=== PATIENT | female | born 1950 | race African-American/Black ===

== ENCOUNTER 2016-08-14 09:25 | Day surgery (SDC) | payer OTHER ==
[2016-08-14] MEDS ORDERED: LR 1,000 ML ONE (10:18)
[2016-08-14] MEDS ORDERED: MYLICON DROPS (DOSE) MISC ONE (13:11)
[2016-08-14] MEDS ORDERED: DIPRIVAN 1% ONE (13:32)
[2016-08-14] MEDS ORDERED: FENTANYL ONE (13:32)
[2016-08-14] MEDS ORDERED: XYLOCAINE-MPF 2% ONE (13:35)
[2016-08-14 14:24] VITALS: BP 168/80
--- NOTE | 2016-08-20 04:16 | OPERATIVE NOTE ---
PROCEDURE DATE: 08/14/2016 REFERRING PHYSICIAN: Mane Lawton MD. INDICATION FOR PROCEDURE: PEG removal (unable to remove at bedside). PROCEDURE PERFORMED: Esophagogastroduodenoscopy with PEG removal. CONSENT: Informed consent was obtained from the patient prior to the procedure. The risks, benefits, and alternatives were discussed. MEDICATIONS: The patient received monitored anesthesia care. PERFORMING PHYSICIAN: Janae Sinclair MD. ASSISTANTS: 1. [facility]. Evangelista 2. Isaiah Martin RN. 3. Cintia Rojo CRNA. 4. Logan Spicer MD (anesthesia). COMPLICATIONS: There were no complications. ESTIMATED BLOOD LOSS: 1-2 mL. SPECIMENS REMOVED: None. FINDINGS: After sedation was achieved, the upper endoscope was inserted to the 2nd portion of the duodenum. The hypopharynx appeared endoscopically normal. The tubular esophagus appeared normal. There were prominent esophageal veins but no varices or stigmata of bleeding. There was no evidence of Ureña's esophagus. The GE junction was measured at 38 cm from the incisors. There was a hiatal hernia from 38-44 cm. There was nonerosive gastritis in the gastric lumen with a few scattered nonbleeding AVMs. The fundus appeared grossly normal on retroflexed view. The pylorus appeared normal on forward view. The duodenum appeared normal. There was a PEG bumper in the mid gastric body that was seen on insertion. There were inflammatory changes below the surface of the bumper. The mucosa bled easily on contact. Hemostasis was achieved with water flushes. After this exam was complete, the scope was retracted into the gastric lumen. The previously identified PEG internal bumper was visualized. The surrounding mucosa bled on contact. However, hemostasis was achieved with water flushes. Using scissors, the external portion of the PEG was cut and the internal bumper was removed per os without difficulty. Second-look endoscopy confirmed no evidence of active bleeding. There were inflammatory changes immediately adjacent to her PEG tract. After the exam was complete, the lumen was decompressed and the scope was removed without incident. IMPRESSION: 1. Prominent esophageal veins. 2. Hiatal hernia. 3. Nonerosive gastritis. 4. Scattered nonbleeding arteriovenous malformations. 5. Percutaneous endoscopic gastrostomy bumper in the mid gastric body, status post successful removal. 6. Normal duodenum. RECOMMENDATION: 1. We will make the patient NPO for 4 hours to allow the tract to close. 2. She should continue Protonix. 3. Continue Carafate. 4. Add Bactroban for 5 days applied to the skin twice a day for 5 days in light of the inflammation around the PEG tract. 5. After 4 hours, she may resume her diet and resume her medications. 6. Please keep the sterile dressing intact for the next 8 hours after which it can be removed and routine skin care performed. 7. We will have the patient return to clinic in 3 months to assess interval progress.
== END 2016-08-14 14:37 ==
LOC: ENDO 09:25
PROVIDERS: ATTEND Internal Medicine Gastroenterology
DX: Z43.1 Encounter for attention to gastrostomy (principal)
CPT/HCPCS: 82948; J3010; J7120

== ENCOUNTER 2017-02-11 11:12 | Inpatient (IN) ==
--- NOTE | 2017-02-11 11:29 | Diag Imaging Result Doc PS360 ---
EXAM: CT HEAD W/O CONTRAST HISTORY: stroke-like symptoms TECHNIQUE: CT of the head without contrast COMMENT: The current study is compared with that of 06/09/2016. There is extensive encephalomalacia in the right hemisphere including portions of the frontal parietal and temporal lobes. There is a lacunar lesion in the caudate nucleus on the left. There is no evidence of bleed or abnormal extra-axial fluid collection. The previous study was less optimal due to patient motion, however there has been no appreciable change in the brain with possible exception of the lacunar lesion in the left caudate which was not as well demonstrated on the previous study. There is also a more fluid in the left mastoid air cells and on the previous study. IMPRESSION: Chronic ischemic changes. Left mastoid effusion. Electronically signed by Jignesh Vargas 02/11/2017 11:27 AM
[2017-02-11 12:07] LABS: MANUAL DIFF NEEDED? NO
[2017-02-11 12:12] LABS: BASO% 0.2 % (0.0-0.8); EOS% 3.5 % (0.0-10.0); HEMATOCRIT 34.2 % (37.0-47.0); HEMOGLOBIN 11.1 g/dL (12.0-16.0); LYMPH# 2.29 X1000 (1.2-3.4); LYMPH% 26.9 % (20.5-51.1); MCH 30.2 PG (27-31); MCHC 32.5 g/dL (33-37); MCV 92.9 FL (81-99); MONO# 0.63 X1000 (0.11-0.59); MONO% 7.4 % (1.7-9.3); MPV 9.2 FL (7.4-10.4); PLT 258 X1000 (130-400); RBC 3.68 XMIL (4.2-5.4)
--- NOTE | 2017-02-11 12:30 | Diag Imaging Result Doc PS360 ---
EXAM: CHEST-PORTABLE HISTORY: stroke like symptoms TECHNIQUE: AP portable upright chest at 1208 COMMENT: There is poor inspiration. Considering the degree of inspiration there is been no significant change since 09/13/2016. IMPRESSION: Poor inspiration. Electronically signed by Jignesh Vargas 02/11/2017 12:28 PM
[2017-02-11 12:32] LABS: AGAP 7; ALBUMIN 3.3 g/dL (3.5-5.0); ALKALINE PHOSPHATASE 79 U/L (32-104); BUN 17 mg/dL (8-22); CALCIUM 8.8 mg/dL (8.8-10.2); CHLORIDE 94 mmol/L (98-107); COSMO 270; GOT 21 U/L (10-30); GPT 22 U/L (10-36); POTASSIUM 5.7 mmol/L (3.5-5.1); SODIUM 130 mmol/L (136-145); TCO2 29 mmol/L (25-35); TOTAL BILIRUBIN 0.22 mg/dL (0.20-1.00); TOTAL PROTEIN 7.7 g/dL (6.3-8.3)
[2017-02-11 12:34] LABS: INR 1.06; PROTIME 11.2 Seconds (9.2-11.7); PTT 27.1 Seconds (22.0-36.0)
--- NOTE | 2017-02-11 12:38 | EKG Report ---
Test Performed on : 02/11/2017 11:32:05 AM Test Reason : Stroke like symptoms Blood Pressure : / mmHG Vent. Rate : 093 BPM Atrial Rate : 093 BPM P-R Int : 156 ms QRS Dur : 070 ms QT Int : 346 ms P-R-T Axes : 057 019 037 degrees QTc Int : 430 ms Normal sinus rhythm. Normal ECG When compared with ECG of 13-SEP-2016 03:58, No significant change was found Unconfirmed Result
[2017-02-11 12:47] LABS: BILIRUBIN URINE NEGATIVE (NEGATIVE); BLOOD URINE SMALL (NEGATIVE); COLOR ORANGE; GLUCOSE URINE NEGATIVE (NEGATIVE); LEUKOCYTES URINE LARGE (NEGATIVE); NITRITE URINE NEGATIVE (NEGATIVE); PROTEIN URINE TRACE mg/dL (NEGATIVE); SP GRAVITY URINE 1.011; TURBIDITY URINE TURBID (CLEAR); URINE SOURCE CATH; UROBILINOGEN URINE NORMAL (NORMAL)
[2017-02-11 12:56] LABS: UR AMPHETAMINES MT NONE DETECTED (NONE DETECT); UR BARBITUATES MT NONE DETECTED (NONE DETECT); UR BENZODIAZ MT NONE DETECTED (NONE DETECT); UR CANNABIS MEDTOX NONE DETECTED (NONE DETECT); UR COCAINE MT NONE DETECTED (NONE DETECT); UR METHADONE MEDTOX NONE DETECTED (NONE DETECT); UR OPIATES MT PRESUMPTIVE POS (NONE DETECT); UR OXYCODONE MEDTOX NONE DETECTED (NONE DETECT); UR PCP MEDTOX NONE DETECTED (NONE DETECT)
[2017-02-11 13:05] LABS: UR EPITHELIAL CELLS <10 /HPF (<10); URINE BACTERIA 4+ /HPF; URINE CASTS NONE SEEN; URINE CULTURE NEEDED? YES; URINE MICRO REVIEW NEEDED? YES; URINE WBC TNTC /HPF (<10)
[2017-02-11] MEDS ORDERED: LEVAQUIN 500 MG/D5W 500 MG/100 ML IVPB IV ONE (14:59)
--- NOTE | 2017-02-11 15:03 | PROVIDER DOCUMENTATION ---
This chart was entered by Gretchen Jaquez Scribe, acting as scribe for Geronimo Henry MD. HPI-Neurological Disorder - General Chief Complaint: Stroke-Like Symptoms Stated Complaint: ? cva with hx of cva Time Seen by Provider: 02/11/17 11:52 Source: patient, group home records Allergies/Adverse Reactions: Patient Allergies Allergy/AdvReac Type Severity Reaction Status Date / Time Sulfa (Sulfonamide Allergy Intermediate RASH Verified 08/13/16 13:00 Antibiotics) [Sulfa(Sulfonamide Antibiotics)] Home Medications: Home Medication List Medication Instructions Recorded Confirmed Last Taken Type Atorvastatin Calcium 40 mg PEG DAILY 10/05/15 09/13/16 08/13/16 09:00 History Ipratropium/Albuterol Sulfate 3 ml IH Q4H PRN PRN 11/10/15 09/13/16 1 Month Ago History [Iprat-Albut 0.5-3(2.5) mg/3 ml] Magnesium Oxide [Mag-Ox] 400 mg PEG BID #0 tablet 12/07/15 09/13/16 08/13/16 21: 00 Rx Acetaminophen [Tylenol] 325 mg PEG PRN PRN 03/01/16 09/13/16 08/13/16 21:00 History Aspirin 81 mg PEG DAILY 03/01/16 09/13/16 08/10/16 History Bisacodyl [Dulcolax] 10 mg VA DAILY PRN PRN 03/01/16 09/13/16 1 Week Ago History Ergocalciferol (Vitamin D2) 50,000 unit PEG DIRECTED 03/01/16 09/13/16 History [Vitamin D2] Iron Carbonyl/Ascorbic Acid 1 each PEG DAILY 03/01/16 09/13/16 08/13/16 09:00 History [Icar-C] Multivitamin [Once Daily] 1 each PEG DAILY 03/01/16 09/13/16 08/13/16 09:00 History Polyethylene Glycol 3350 [Miralax] 17 gm PO DAILY 03/01/16 09/13/16 08/13/16 21: 00 History Zinc Gluconate [Zinc] 220 mg PEG DAILY 03/01/16 09/13/16 08/13/16 09:00 History Citalopram [Celexa] 20 mg PO QHS #30 tablet 12/30/16 03/30/17 02/27/17 21:00 Rx Donepezil [Aricept] 10 mg PEG DAILY #30 tablet 06/15/16 09/13/16 08/13/16 09:00 Rx LISINOpril [Prinivil] 10 mg PO DAILY #0 tablet 06/15/16 09/13/16 08/14/16 06:30 Rx Pantoprazole [Protonix] 40 mg PO BID #90 tablet 06/15/16 09/13/16 08/13/16 21: 00 Rx Sucralfate [Carafate Liquid] 1 gm PEG Q6H #30 udc 06/15/16 09/13/16 08/13/16 18: 00 Rx Trazodone [Desyrel] 50 mg PEG QHS #30 tablet 06/15/16 09/13/16 08/13/16 21:00 Rx Gabapentin [Neurontin] 300 mg PO BID 08/13/16 09/13/16 08/13/16 21:00 History Hydrocodone/Acetaminophen [[place] 1 each PO PRN PRN 08/13/16 09/13/16 08/13/16 23 :45 History 10-325 Tablet] Metformin [Glucophage] 500 mg PO BID CC 08/13/16 09/13/16 08/13/16 21:00 History Mupirocin Ointment [Bactroban 1 applicatn TOP BID #1 tube 08/14/16 09/13/16 Unknown Rx Ointment] - History of Present Illness-Neuro Nature of Presenting Problem: 67 year-old female presents to the ER via EMS transport from the group home. She began to have left sided arm weakness on 02/10/17. She is having left sided facial drooping and right sided facial numbness today. She has history of a CVA that caused right sided numbness. She also has history of Alzheimer's and is confused at times. No other symptoms are presented at this time. Severity: reports: mild Onset/Duration: reports: 24 hours ago Timing: reports: still present Context: reports: other (Left sided weakness.) Character of Altered Mental Status: reports: N/A Any recent trauma/injury?: reports: none Character of Deficits: reports: new weakness (Left sided) New weakness or altered sensation location:: reports: left facial Cognitive Baseline: alert but confused Associated Symptoms: reports: paresthesia, weakness Similar Symptoms Previously?: Yes Recently seen or treated by another doctor?: Yes Review of Systems - Adult - REVIEW OF SYSTEMS - ADULT Constitutional: reports: no symptoms reported, see HPI Eyes: reports: no symptoms reported, see HPI Ears, Nose, Mouth & Throat: reports: no symptoms reported, see HPI Cardiovascular: reports: no symptoms reported, see HPI Respiratory: reports: no symptoms reported, see HPI Gastrointestinal: reports: no symptoms reported, see HPI Genitourinary: reports: no symptoms reported, see HPI Musculoskeletal: reports: no symptoms reported, see HPI Integumentary: reports: no symptoms reported, see HPI Neurological: reports: see HPI, numbness (Right side of face.), other (Left facial droop and tongue deviation.) Psychiatric: reports: no symptoms reported, see HPI Endocrine: reports: no symptoms reported, see HPI, excessive sweating Hematologic/Lymphatic: reports: no symptoms reported, see HPI Allergic/Immunologic: reports: no symptoms reported, see HPI All Other Systems: Reviewed and Negative Past History - Adult - PAST MEDICAL HISTORY-ADULT Review of Records: reports: Old Records Reviewed, Nursing Assessment Review, Medications Reviewed, Social history reviewed & non-contributory. Major Childhood Illnesses: reports: denies history Cardiovascular: reports: HTN, hyperlipidemia Respiratory: reports: denies history Gastrointestinal: reports: denies history Obstetrical/Gynecological: reports: denies history Genitourinary: reports: kidney disease Musculoskeletal: reports: denies history Neurological: reports: CVA (2008 left side, 03/2015 right side), stroke deficits (right sided) Endocrine/Immune: reports: Diabetes Other Conditions: reports: denies history - PRIOR SURGERIES/PROCEDURES Surgical/Procedure History: reports: hysterectomy - PRIOR HOSPITALIZATIONS Prior Hospitalizations: reports: none - IMMUNIZATION STATUS Childhood Immunizations: See Nurse Assessment Flu Vaccine: See Nurse Assessment - FAMILY HISTORY Family History: reviewed, not pertinent - SOCIAL HISTORY Smoking: non-smoker Substance Use: none/never Alcohol Use Frequency: never Physical Exam- Neurological - Physical Exam-Neuro Initial Vital Signs Reviewed: Yes General Appearance: appears well, alert, no apparent distress HENMT: normocephalic/atraumatic, moist mucous membranes, other (Left tongue deviation. 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 Exam: normal hearing, normal speech, PERRL, facial droop (Left sided), tongue deviation to L Coordination/Gait: normal finger to nose Motor/Sensory: no motor deficit, sensory deficit (Right side of face.) Neurologic: aircraft magneto mechanic II-XII nml as tested, facial droop (Left side), sensory deficit (Right side of face) Integumentary: normal color, normal turgor, warm/dry Psych/Mental Status: normal mood/affect, normal thought content, normal thought process - Glascow Coma Scale Best Eye Response: (4) open spontaneously Best Verbal Response: (5) oriented (Person, time) Best Motor Response: (6) obeys commands Total Glascow Score: 15 Progress - PLAN OF CARE/RESULTS Progress/Plan/Lab Results: Vital Signs - 8 hr 02/11/17 11:34 02/11/17 12:17 02/11/17 12:30 Temperature 98.7 F Pulse Rate 91 H 86 87 Respiratory Rate 18 13 15 Blood Pressure 108/71 118/92 103/70 O2 Sat by Pulse Oximetry 96 95 95 02/11/17 13:00 02/11/17 13:47 02/11/17 14:21 Temperature Pulse Rate 83 83 86 Respiratory Rate 13 15 13 Blood Pressure 112/85 94/69 114/71 O2 Sat by Pulse Oximetry 95 96 95 Laboratory Results - last 24 hr 02/11/17 02/11/17 02/11/17 12:00 12:00 12:00 WBC 8.51 RBC 3.68 L Hgb 11.1 L Hct 34.2 L MCV 92.9 MCH 30.2 MCHC 32.5 L RDW Std Deviation 12.7 Plt Count 258 MPV 9.2 Immature Gran % (Auto) 0.0 Neut % (Auto) 62.0 Lymph % (Auto) 26.9 [place] % (Auto) 7.4 Eos % (Auto) 3.5 Baso % (Auto) 0.2 Immature Gran # (Auto) 0.00 Neut # (Auto) 5.27 Lymph # (Auto) 2.29 [place] # (Auto) 0.63 H Eos # (Auto) 0.30 Baso # (Auto) 0.02 PT 11.2 INR 1.06 PTT (Actin FS) 27.1 Sodium 130 L Potassium 5.7 H Chloride 94 L Carbon Dioxide 29 Anion Gap 7 BUN 17 Creatinine 0.7 Estimated GFR/1.73 m2 > 60 BUN/Creatinine Ratio 24 Glucose 232 H Calculated Osmolality 270 Calcium 8.8 Total Bilirubin 0.22 AST 21 ALT 22 Alkaline Phosphatase 79 Troponin T Total Protein 7.7 Albumin 3.3 L Globulin 4.4 Albumin/Globulin Ratio 0.8 Urine Source Urine Color Urine Turbidity Urine pH Ur Specific [place] Urine Protein Ur Glucose (Stick) Ur Ketones (Stick) Urine Blood Urine Nitrite Urine Bilirubin Urobilinogen Dipstick Urine Leukocytes Urine WBC (Auto) Urine RBC (Auto) U Epithel Cells (Auto) Urine Bacteria (Auto) Urine Crystals Small Round Cells Urine Casts Urine Yeast-like Cells Urine Opiates Screen Ur Oxycodone Screen Urine Methadone Screen Ur Barbiturates Screen Ur Phencyclidine Scrn Ur Amphetamines Screen U Benzodiazepines Scrn Urine Cocaine Screen U Cannabinoids Screen 02/11/17 02/11/17 02/11/17 12:00 12:31 12:34 WBC RBC Hgb Hct MCV MCH MCHC RDW Std Deviation Plt Count MPV Immature Gran % (Auto) Neut % (Auto) Lymph % (Auto) [place] % (Auto) Eos % (Auto) Baso % (Auto) Immature Gran # (Auto) Neut # (Auto) Lymph # (Auto) [place] # (Auto) Eos # (Auto) Baso # (Auto) PT INR PTT (Actin FS) Sodium Potassium Chloride Carbon Dioxide Anion Gap BUN Creatinine Estimated GFR/1.73 m2 BUN/Creatinine Ratio Glucose Calculated Osmolality Calcium Total Bilirubin AST ALT Alkaline Phosphatase Troponin T < 0.010 Total Protein Albumin Globulin Albumin/Globulin Ratio Urine Source CATH Urine Color ORANGE Urine Turbidity TURBID Urine pH 8.0 Ur Specific [place] 1.011 Urine Protein TRACE A Ur Glucose (Stick) NEGATIVE Ur Ketones (Stick) NEGATIVE Urine Blood SMALL A Urine Nitrite NEGATIVE Urine Bilirubin NEGATIVE Urobilinogen Dipstick NORMAL Urine Leukocytes LARGE A Urine WBC (Auto) TNTC A Urine RBC (Auto) 10-20 A U Epithel Cells (Auto) <10 Urine Bacteria (Auto) 4+ Urine Crystals Not Reportable Small Round Cells Not Reportable Urine Casts NONE SEEN Urine Yeast-like Cells NONE SEEN Urine Opiates Screen PRESUMPTIVE POS A Ur Oxycodone Screen NONE DETECTED Urine Methadone Screen NONE DETECTED Ur Barbiturates Screen NONE DETECTED Ur Phencyclidine Scrn NONE DETECTED Ur Amphetamines Screen NONE DETECTED U Benzodiazepines Scrn NONE DETECTED Urine Cocaine Screen NONE DETECTED U Cannabinoids Screen NONE DETECTED Orders Category Date Time Status Cardiac Monitoring DIRECTED Care 02/11/17 11:53 Active Finger Stick Blood Sugar (ED) DIRECTED Care 02/11/17 11:53 Active Misc. NRSG Communication Order DIRECTED Care 02/11/17 11:53 Active Saline Loc NOW Care 02/11/17 11:53 Active CHEST-PORTABLE [RAD] Stat Exams 02/11/17 11:[address] HEAD W/O CONTRAST [CT] Stat Exams 02/11/17 11:15 Completed CBC WITH ELECTRONIC DIFF [HEME] Stat Lab 02/11/17 12:00 Completed COMPREHENSIVE METABOLIC PANEL [CHEM] Stat Lab 02/11/17 12:00 Completed PROTIME WITH INR [COAG] Stat Lab 02/11/17 12:00 Completed PTT [COAG] Stat Lab 02/11/17 12:00 Completed TROPONIN T Stat Lab 02/11/17 12:00 Completed URINALYSIS W/POSS RFLX CULT-1 [URINALYSIS] Stat Lab 02/11/17 12:34 Completed URINE CULTURE [RM] Routine Lab 02/11/17 13:09 Received URINE DRUG SCREEN MEDTOX Routine Lab 02/11/17 12:31 Completed URINE MANUAL MICROSCOPIC [URINALYSIS] Stat Lab 02/11/17 12:34 Completed Levofloxacin 500 mg/D5w [Levaquin 500 mg/D5w] Med 02/11/17 14:59 Active 500 mg in 100 ml IV NOW EKG [EKG] Stat Ther 02/11/17 11:53 Draft Transfer/Admit Order [TRANSFER] Routine Transfer 02/11/17 15:00 Ordered Result Diagrams: 02/11/17 12:00 02/11/17 12:00 - EKG 1 Time of EKG reading by physician:: 11:32 EKG Read and Signed by:: Geronimo Henry EKG Interpretation (*Must complete 3 of following elements*): Normal Rate: 93 [place]: normal (PRT axis 57 19 37.) QRS: normal (QRS duration 70 ms.) VA Interval: normal (VA interval 156 ms.) - CT/MRI 1 CT Study: Head Comparison with other Films: no changes CT Results: Chronic ischemic changes. Left mastiod effusion. - CONSULTS/PCP/HOSPITALIST Notification #1 *Consult/PCP/Hospitalist*: Keena GHOSH with hospitalist Time Discussed: 14:58 Reason/Comments: UTI with delirum Consult Disposition: Admit Departure - Departure Date of Disposition Decision: 02/11/17 Time of Disposition Decision: 14:59 DIAGNOSIS: UTI (urinary tract infection), Delirium due to another medical condition Disposition: ADMITTED INPATIENT 09 Certified Medical Emergency: Emergent Condition: Stable Referrals and Follow-Ups: Marty Campos MD [Primary Care Provider] - - Critical Care Note This patient required my direct & personal management of CC.: No Attestation - Physician/ CHICHI Attestation The physician spent face to face time with patient:: Yes Advanced Practice Provider documentation review:: Supervising physician onsite and consulted in the evaluation and care of this patient. The physician did have a face to face encounter with the patient. - NIH Stroke Scale NIH Type: Initial Evaluation Level of Consciousness: 0-Alert LOC Questions (ask month and age): 0-Answers Both Correctly LOC Commands (ask to open & close eyes;make a fist, let go): 0-Obeys Both Correctly Best Gaze (horizontal eye movement): 0-Normal Visual (use finger movement, counting or visual threat): 0-No Visual Loss Facial Palsy (show teeth or raise eyebrows & close eyes tght: 1-Minor Paralysis (Left sided facial droop.) Motor Function-left arm: 0-Normal Motor Function-right arm: 0-Normal Motor Function-left le-Normal Motor Function-right le-Normal Limb Ataxia(dvqtbt-[id number]-gmukke, or heel to evangelista): 0-No Ataxia Sensory(pin prick to face,arms,trunk,legs-compare side/side): 1-Mild to Moderate Decrease in Sensation (Right side of face.) Best Language(name item/read sentence.Ex-Down to Earth): 0-No Aphasia Dysarthria(Pt read words or say words Ex.Mama,Tip-Top,Thanks: 0-Normal Articulation Extinction and Inattention: 0-Normal Stroke tPA Guidelines - Inclusion Criteria for IV tPA Onset <3 hours ago *OR* 3-4.5 hours ago: Yes (Symptoms begano n 02/10/17.) This chart was documented by the indicated scribe, (Gretchen Jaquez, Scribe) and accurately reflects the services I performed and decisions made by , Geronimo Henry MD, as attested by the provider's signature.
[2017-02-11] MEDS ORDERED: KAYEXALATE PO ONE (16:05)
[2017-02-11] MEDS ORDERED: NS 1,000 ML IV SCH (16:44)
[2017-02-11] MEDS ORDERED: ZOFRAN IV PRN (16:44)
--- NOTE | 2017-02-11 18:21 | CONSULTATION ---
DATE OF CONSULTATION: 02/11/2017 INDICATION: Evaluate patient for possible transesophageal echo related to CVA. HISTORY OF PRESENT ILLNESS: Ms. Dyer is a pleasant, 67-year-old black female with a history of a previous large CVA resulting in right-sided hemiparesis. She apparently presented for evaluation of right-sided facial numbness. This has been going on for roughly one day. She is a difficult historian due to being very difficult to understand. She presently is not having any chest pain nor is she complaining of any shortness of breath. She reports she feels somewhat hungry at present as she has not had anything to eat since yesterday. She has no other complaints. PAST MEDICAL HISTORY: 1. Significant for a large CVA in the past with residual right-sided weakness. 2. Type 2 diabetes. 3. Hypertension. 4. Hyperlipidemia. 5. COPD. 6. Dementia. 7. Reflux disease. 8. Iron deficiency anemia. 9. Peripheral vascular disease with bilateral AKAs. SOCIAL HISTORY: She is apparently . She currently lives at [facility]. FAMILY HISTORY: Significant for hypertension. REVIEW OF SYSTEMS: A 10 system review of systems is negative although it is very difficult to obtain. PHYSICAL EXAMINATION: Vital Signs: Significant for patient being afebrile. Heart rates in the 80s to 90s. Blood pressure 132/62. General: She is in no acute distress. HEENT: Oropharynx is moist. Normal dentition. Eye examination shows pink conjunctivae, white sclerae. Neck: Examination shows no obvious thyromegaly or thyroid tenderness. Cardiovascular: She sounds to be in regular rate and rhythm. No obvious murmurs. She has no S3. Extremities: She has no lower extremity edema. Notably she does have bilateral AKAs. There was no stump edema noted. Chest: Examination was relatively clear to auscultation bilaterally. She had no increased work of breathing. Abdomen: Soft, nontender, nondistended. She has no obvious organomegaly. Skin Examination: Warm and dry throughout without any rashes. Neurological: Her only main complaint to me seemed to be paresthesias in the distribution of the right facial area from roughly the angle of the jaw/ear area down to the chin. There were no obvious other cranial nerve deficits. She did have significant speech difficulties. She was not complaining of any lateralizing weakness. Psychiatric: She seems alert and oriented. She is difficult to understand secondary to her speech issues. PERTINENT DATA: Her EKG shows sinus rhythm, rate of 93 beats per minute. No signs of ischemic changes or infarct. Her chest x-ray demonstrated evidence for poor inspiration but otherwise was unremarkable. She had a head CT demonstrating chronic ischemic changes with a left mastoid effusion. There was evidence for a lacunar lesion in the caudate nucleus on the left side. This was not reported to be acute. There was significant encephalomalacia of the right hemisphere including portions of the frontal, parietal and temporal lobes. Laboratory data shows a white count of 8.5, hematocrit 34, platelet count 258,000. INR 1.0. Sodium 130, potassium 5.7, BUN is 17, creatinine 0.7, albumin is 3.3. Urinalysis shows 10-20 RBCs, ccu-[id number]-bc-count WBCs. Urine was described as turbid, pH of 8.0 from a catheter. I am unsure if this is a chronic indwelling catheter. UDS was positive for opiates. ASSESSMENT: Ms. Dyer is a 67-year-old, black female with a history of previous CVA. Per report she does not appear to have any acute findings on her CT scan. PLAN: I would not pursue a transesophageal echo at this time. She has not passed a swallowing evaluation currently and she certainly would need to pass that prior to any sort of transesophageal echo being performed. In addition, she has some electrolyte abnormalities which likely need to be corrected including her hyponatremia and hyperkalemia. We could consider a transesophageal echo as an outpatient, however we have not seen any evidence of a new embolic type clot. I would more likely pursue outpatient heart rhythm monitoring to evaluate for atrial fibrillation prior to pursuing a transesophageal echo. I will order a transthoracic echo to be performed in the morning. cc: Jose Akins MD
--- NOTE | 2017-02-11 20:31 | HISTORY AND PHYSICAL ---
PRIMARY CARE PROVIDER: Dr. Carlos Campos. CHIEF COMPLAINT: Complained of right-sided numbness for 2-3 day. HISTORY OF PRESENT ILLNESS: Ms. 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 Apparently she used to have a PEG tube that was discontinued earlier this year and she has been able to eat without difficulty. She notice that she started having some numbness in the right side of her cheek and down her right arm and right thigh. She was unable to tell me if she noticed a difference in the weakness on her right side given there was no way to compare the previous strength to her current strength. Her tongue was midline. She had a mild right facial droop. Her speech was dysarthric but she was oriented to name, place, year. She also had significantly decreased hearing on her right side. It is unknown when these symptoms started. She does have a history of an old CVA. Her initial CAT scan did not show any acute findings. Other workup revealed that she had a significant urinary tract infection which has been treated with Levaquin IV. Will admit and send her for an MRI, MRA of the brain tomorrow morning. We will do neuro checks and consult neurology. Will also continue her antibiotics for her urinary tract infection. She was unable to tell me if she had any symptoms such as burning with urination. PAST MEDICAL HISTORY: CVA with right-sided residual, requiring PEG tube secondary to decreased swallowing abilities which was discontinued in early 2016 and she is now able to take in p.o., diabetes mellitus type 2, hypertension, hyperlipidemia, COPD, dementia, GERD, iron deficiency anemia, chronic constipation, upper GI bleed. PAST SURGICAL HISTORY: She has had bilateral [id number] amputations, PEG tube placement in November of 2015 which was discontinued earlier in 2016, and hysterectomy. SOCIAL HISTORY: She has been residing at [facility]. Uses a wheelchair for activity. She is a former smoker with a history of alcohol abuse in the past. Also has a history of cocaine and marijuana use in the past. FAMILY HISTORY: Noncontributory. REVIEW OF SYSTEMS: Fourteen point review of systems were complete and all were negative except for those mentioned in the above HPI. ALLERGIES: Sulfonamides. HOME MEDICATIONS: Tylenol, aspirin, atorvastatin, calcium, Bisacodyl, Celexa or Aricept, vitamin D2, Neurontin, Mcclusky 10s, albuterol Atrovent nebs, iron, vitamin C, Icar C, lisinopril, magnesium oxide, metformin, multivitamin, Protonix, MiraLAX, Carafate, trazodone, and zinc. All of these are subject to change after full medication reconciliation is completed. PHYSICAL EXAMINATION: VITAL SIGNS: Temperature is 98.9 degrees, heart rate 81, respiratory rate 22, blood pressure 132/62, O2 saturation 100% on nasal cannula. She is 5 feet 9 inches tall, 195 pounds, BMI 28.8. GENERAL: Ms. Rashida Dyer is ill-appearing, 67-year-old female, who is in no acute distress. She is able answer some questions but not all questions appropriately. She was oriented x3. HEENT: Atraumatic, normocephalic. Actually she had a right facial droop. Tongue was midline. Mucous membranes moist. Pupils are equal and reactive, brisk at 2 mm. NECK: No JVD or carotid bruits noted. CARDIOVASCULAR: S1, S2. Regular rate and rhythm. No rubs, gallops, murmurs. PULMONARY: Clear to auscultation. Bilateral breath sounds. No accessory muscle use or work of breathing noted, although it did sound as if she would have a productive cough but was unable to cough up anything. Tolerating 2 L nasal cannula. GI: Soft, nontender, nondistended. Positive bowel sounds x4. EXTREMITIES: Trace edema in the upper extremities and in the bilateral stumps of the lower extremities. SKIN: Warm, dry, intact. NEUROLOGIC: Oriented times name, place, and year. She followed commands but had a 1/5 strength on the right and about a 4/ 5 of strength on the left upper extremity. LABORATORY DATA: White blood cells 8,000, hemoglobin 11, hematocrit 34, platelet count 258,000. INR is 1.06, PTT is 27.1. Sodium 130, potassium 5.7, BUN 17, creatinine 0.7, glucose 232, calcium 8.8, bilirubin 0.22, AST 21, ALT 22. Troponin less than 0.01. TSH 1.64. Urinalysis: Trace protein, small blood, large leukocytes, too numerous to count white blood cells , red blood cells 10-20, bacteria 4+. Urine drug screen positive for opiates. IMAGING: Head CT: Chronic ischemic changes. Left mastoid effusion. Chest x- ray: Poor inspiration, but no acute finding. No changes since September 13, 2016. EKG: Normal sinus rhythm, QTc is 430, rate is 93. ASSESSMENT AND PLAN: 1. Patient with history of cerebrovascular accident, now presents with complaints of right-sided numbness, right facial numbness that the patient states is new. Head CTA does not reveal any acute findings. Will order an MRI, MRA of the brain in the morning. Will consult neurology and do frequent neuro checks. Continue her on aspirin and statin. 2. Urinary tract infection. We will continue with Levaquin. 3. Diabetes mellitus type 2. We will do pattern blood glucoses and sliding scale insulin. 4. History of chronic obstructive pulmonary disease. She does have what sounds like it could be a productive cough but she is unable to cough up the phlegm. We will add albuterol and Atrovent nebs q.6 hours, budesonide, and acetylcysteine nebs q.12 hours. 5. Hypertension. Currently stable. We will allow for permissive hypertension for now. 6. Gastroesophageal reflux disease. Continue proton pump inhibitor. 7. Hyperlipidemia. Continue statin. 8. Iron deficiency anemia. Continue home medications once verified. 9. Deep venous thrombosis prophylaxis. Given history of GI bleed and some mild anemia will hold off on heparin or Lovenox for prophylaxis. Dictated by AUGIE Valencia for Reynaldo Tucker MD cc: AUGIE Valencia MD Patient present with global encephalopathy. Likely from infectious etiology vs drug induced. continue plan as above. Will hold off on MRI for now. Has hx of right hemiparesis MTDD
[2017-02-11] MEDS: LIPITOR PO SCH (20:42)
[2017-02-11] MEDS: TYLENOL PO PRN (20:42)
[2017-02-11] MEDS: HUMULIN R SUBQ SCH (20:43)
[2017-02-11] MEDS: MUCOMYST 20% INH SCH (23:44)
[2017-02-11] MEDS: DUONEB (A & A) INH SCH (23:44)
[2017-02-11] MEDS: PULMICORT INH SCH (23:45)
[2017-02-12] MEDS: TYLENOL PO PRN ×3 (02:25→15:34)
[2017-02-12] MEDS: DUONEB (A & A) INH SCH ×4 (03:26→22:36)
[2017-02-12 05:32] LABS: MANUAL DIFF NEEDED? NO
[2017-02-12 05:39] LABS: EOS# 0.23 X1000 (0.0-0.7); HEMOGLOBIN 10.7 g/dL (12.0-16.0); MCV 93.5 FL (81-99)
[2017-02-12 05:42] LABS: BASO% 0.2 % (0.0-0.8); EOS% 4.1 % (0.0-10.0); HEMATOCRIT 33.3 % (37.0-47.0); LYMPH# 1.92 X1000 (1.2-3.4); LYMPH% 34.3 % (20.5-51.1); MCH 30.1 PG (27-31); MCHC 32.1 g/dL (33-37); MONO# 0.41 X1000 (0.11-0.59); MONO% 7.3 % (1.7-9.3); NEUT% 54.1 % (42.2-75.2); PLT 256 X1000 (130-400); RBC 3.56 XMIL (4.2-5.4)
[2017-02-12 05:48] LABS: INR 1.09; PROTIME 11.5 Seconds (9.2-11.7); PTT 28.7 Seconds (22.0-36.0)
[2017-02-12] MEDS: PROTONIX PO SCH ×3 (05:52→20:05)
[2017-02-12 06:27] LABS: AGAP 8; ALBUMIN 3.4 g/dL (3.5-5.0); ALKALINE PHOSPHATASE 74 U/L (32-104); BUN 15 mg/dL (8-22); CALCIUM 8.4 mg/dL (8.8-10.2); CHLORIDE 96 mmol/L (98-107); COSMO 279; GOT 26 U/L (10-30); GPT 26 U/L (10-36); SODIUM 135 mmol/L (136-145); TCO2 31 mmol/L (25-35); TOTAL BILIRUBIN 0.29 mg/dL (0.20-1.00); TOTAL PROTEIN 8.1 g/dL (6.3-8.3)
[2017-02-12] MEDS: PULMICORT INH SCH ×2 (07:23→22:37)
[2017-02-12] MEDS: MUCOMYST 20% INH SCH ×2 (07:23→22:36)
[2017-02-12] MEDS: HUMULIN R SUBQ SCH ×4 (07:58→20:05)
[2017-02-12] MEDS ORDERED: ASPIRIN PO SCH (09:00)
[2017-02-12] MEDS: ZOSYN 3.375 GM in NS 50 ML IV SCH ×3 (10:06→20:00)
[2017-02-12] MEDS ORDERED: ASPIRIN PR ONE (13:20)
--- NOTE | 2017-02-12 13:51 | PROGRESS NOTE ---
DATE: 02/12/2017 SUBJECTIVE: She reports she has been feeling somewhat better. The numbness she was experiencing over the right side of her face has improved somewhat. She has passed her swallowing evaluation. PHYSICAL EXAMINATION: Vital Signs: She is afebrile. Heart rates in the 80s, blood pressure 129/57. General: She is in no acute distress. Cardiovascular: She sounds to be in a regular rate and rhythm. She has no murmurs. No S3. No lower extremity edema noted in the bilateral AKA. Chest: Exam sounds relatively clear, but she has poor inspiratory effort. Abdomen: Soft, nontender. Good bowel sounds. PERTINENT DATA: White count 5.6, hematocrit 33.3, platelet count 256. Sodium 135, potassium is 5, BUN 15, creatinine 0.7. ASSESSMENT: Ms. Dyer is a 67-year-old black female with a history of large cerebrovascular accident in the past. PLAN: At this point, I would likely not pursue transesophageal echo as there has been no evidence of an embolic event recently. I will arrange for an outpatient NEGRA to evaluate for any occult atrial fibrillation. ADDENDUM: Echo from this visit was reviewed and showed a preserved EF with no evidence of clot. I will make arrangements for an outpatient NEGRA to evaluate for occult afib. cc: Jose Akins MD MTDD
[2017-02-12] MEDS ORDERED: DEFINITY ONE ×2 (14:35)
--- NOTE | 2017-02-12 14:36 | Diag Imaging Result Doc PS360 ---
EXAM: MRI BRAIN W/O CONTRAST - 02/12/2017 HISTORY: stroke TECHNIQUE: Without contrast per request the referring provider. COMPARISON: CT head 02/11/2017 FINDINGS: There is abnormal signal compatible with encephalomalacia and gliosis from old infarcts at portions of the frontal, temporal, and posterior parietal-occipital lobes on the right. There is an old lacunar infarct at the left caudate nucleus. The diffusion weighted images show no areas of restricted diffusion (no evidence of acute infarct). There is no evidence of hemorrhage, mass effect, midline shift, or hydrocephalus. There are bilateral mastoid effusions noted. IMPRESSION: Old infarcts at frontal, temporal, and posterior parietal-occipital lobes on the right. Old lacunar infarct at left caudate nucleus. No visible acute intracranial abnormality. No evidence of acute infarct. There are bilateral mastoid effusions noted. Electronically signed by Orlando Villa 02/12/2017 2:34 PM
--- NOTE | 2017-02-12 14:42 | Diag Imaging Result Doc PS360 ---
EXAM: MRA BRAIN W/O CONTRAST - 02/12/2017 HISTORY: stroke TECHNIQUE: Without contrast [id number] MR angiogram of intracranial circulation with reconstructed 3-D rotating MIP images is obtained. COMPARISON: None. FINDINGS: There is no visible flow in the distal right internal carotid artery. This suggests that the distal right internal carotid artery is occluded. There is no other occlusion of major intracranial artery identified. Major intracranial arteries on the right apparently receive their supply from the left carotid and/or basilar artery via the [place]. There is no aneurysm identified. 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 Electronically signed by Orlando Villa 02/12/2017 2:40 PM
[2017-02-12] MEDS: LEVAQUIN 500 MG in NS 100 ML IV SCH (15:15)
[2017-02-12] MEDS ORDERED: DULCOLAX PR PRN (19:38)
[2017-02-12] MEDS: LIPITOR PO SCH ×2 (19:59→20:00)
[2017-02-12] MEDS: ATIVAN IV PRN (20:00)
[2017-02-12] MEDS: CARAFATE LIQUID PO SCH (20:05)
[2017-02-12] MEDS: NORCO-10 PO PRN (20:05)
--- NOTE | 2017-02-12 20:05 | PROGRESS NOTE ---
DATE: 02/12/2017 SUBJECTIVE: The patient is resting comfortably in bed. She states that the numbness on the right side of her face has improved. She also passed her swallow evaluation and has been placed on a mechanical soft diet. OBJECTIVE: Vital Signs: Temperature 98 degrees, blood pressure 129/57, heart rate 84 respirations 18, O2 saturations 99% on 2 L nasal cannula. General: This is a morbidly obese female, lying in bed, in no acute distress. Head normocephalic, atraumatic. Heart: S1, S2 normal. Regular rate and rhythm. Lungs: Clear to auscultation bilaterally. Abdomen: Positive bowel sounds. Soft, nontender, nondistended. Extremities: No edema. No cyanosis. No calf tenderness. Neurologic: The patient is awake, alert and oriented x 3. LABS: White blood cell count 5.6, hemoglobin 10, hematocrit 33, platelets 256,000. Sodium 135, potassium 5, chloride 96, CO2 31, BUN 15, creatinine 0.7, glucose 244. ASSESSMENT AND PLAN: 1. Transient ischemic attack. The MRI did not show any new infarct and the patient's numbness is improving. Will continue on Lipitor and aspirin. Will also consult physical therapy. 2. Urinary tract infection. Continue on antibiotic therapy. 3. Uncontrolled insulin-dependent diabetes mellitus. Will start the patient on Lantus twice a day. 4. Situational depression. Continue on Celexa. 5. Dementia. Continue on Aricept. 6. Gastroesophageal reflux disease. Continue on Protonix. cc: Zaida Lawrence MD
[2017-02-12] MEDS: LANTUS SUBQ SCH (20:06)
[2017-02-12] MEDS ORDERED: INSULIN PEN NEEDLES ONE (20:11)
[2017-02-12] MEDS: CELEXA PO SCH (20:49)
[2017-02-13] MEDS: ZOSYN 3.375 GM in NS 50 ML IV SCH ×3 (00:22→09:17)
[2017-02-13] MEDS: DUONEB (A & A) INH SCH ×4 (03:25→19:20)
--- NOTE | 2017-02-13 04:21 | CONSULTATION ---
DATE OF CONSULTATION: 02/12/2017 REASON FOR CONSULTATION: Concern for stroke. HISTORY OF PRESENT ILLNESS: A 67-year-old right-handed female with history of stroke and residual right hemiparesis, type 2 diabetes, hypertension, and hyperlipidemia, who presented yesterday with complaints of right-sided numbness for 2-3 days. The patient states that she started to have numbness in the right lower face as well as the entire right arm and the right thigh area. She is not sure whether or not her arm is more weak than it is typically. She does not feel like her speech has been changed in any way from baseline. No other neurologic symptoms. Initial CT scan did not show any acute findings. Of note, she was found to have a significant urinary tract infection and has been started on treatment for this. MRI/MRA of the head and neck were performed and did not show any acute stroke. There is an old left caudate lacunar infarct as well as extensive old infarcts within the right hemisphere. PAST MEDICAL HISTORY: 1. Stroke with residual right hemiparesis. 2. Type 2 diabetes. 3. Hypertension. 4. Hyperlipidemia. 5. Possible dementia. 6. COPD. 7. GERD. 8. Iron-deficiency anemia. 9. Chronic constipation. 10.Upper GI bleed. 11.Bilateral above knee amputations. 12.PEG placement in November 2015 which was discontinued this year. 13.Hysterectomy. SOCIAL HISTORY: She lives at [facility]. She is in a wheelchair. She was a past smoker but has not smoked in about 3 years. She has not used any alcohol in 10 years. No current illicit drug use although notes indicate that she has a history of cocaine and marijuana use in the past. FAMILY HISTORY: Notable for strokes. ALLERGIES: Sulfa. HOME MEDICATIONS: 1. Aspirin. 2. Atorvastatin. 3. Celexa. 4. Aricept. 5. Neurontin. 6. Lyme. 7. Lisinopril. 8. Metformin. 9. Trazodone. REVIEW OF SYSTEMS: Review of systems conducted and is otherwise negative except as detailed in the HPI. PHYSICAL EXAMINATION: Vital signs: Afebrile. Blood pressure 161/76. Pulse 100. Respirations 18. General: This is an obese female who currently is in no acute distress, very pleasant and cooperative. Neck: Supple. Trachea midline. Lungs: Increased work of breathing. Normal chest rise and expansion. No audible wheezes. Abdomen: Obese, soft, nontender, nondistended. Extremities: She has bilateral above knee amputations. Mental status: She is awake and alert. She was oriented. Her language function is intact. Attention and concentration intact. Cranial nerves: PERRL. Conjugate gaze. Ocular muscles are full. There is some slight right facial asymmetry. She reports decreased facial sensation on the right lower area. Tongue is midline. Shoulder shrug is full. Motor exam: She has increased tone in the right upper extremity as well as notable weakness in an upper motor neuron distribution pattern. The left arm was intact. Reduced sensation along the whole right arm and into the right thigh. Reflexes are diminished throughout. No evidence of incoordination that I can see. Gait was not testable. DIAGNOSTICS: Labs were reviewed in the chart. Notable is she has a recurrent urinary tract infection, glucose in the 200s, normal white count of 9.1. MRI of the brain was personally reviewed. There are no acute findings. Extensive remote infarcts within the right hemisphere, also an old lacunar infarct at the left caudate. There were no significant findings. It does show evidence of extensive remote infarct within the right hemisphere. There was also an old lacunar infarct at the left caudate. MRA of the head with occlusion of the right distal ICA. EKG with normal sinus rhythm. ASSESSMENT AND PLAN: A 67-year-old female with history of stroke and right hemiparesis, presenting with complaint of numbness that has been persistent for the last 3-4 days in the setting of significant urinary tract infection and negative brain imaging for acute infarct. Most likely this represents unmasking of her prior stroke symptoms in the setting of the current urinary tract infection. As such, this should continue to improve as the infection is treated. I would continue her medications for secondary stroke prevention. Thank you for this consultation. cc: Chrissy Romero MD [facility] HOSPITALBeatriz
[2017-02-13 05:22] LABS: HEMATOCRIT 32.8 % (37.0-47.0); HEMOGLOBIN 10.5 g/dL (12.0-16.0); MCH 30.4 PG (27-31); MCV 95.1 FL (81-99); RBC 3.45 XMIL (4.2-5.4)
[2017-02-13] MEDS: CARAFATE LIQUID PO SCH ×4 (05:43→20:07)
[2017-02-13 05:54] LABS: AGAP 13; BUN 10 mg/dL (8-22); CHLORIDE 93 mmol/L (98-107); COSMO 274; POTASSIUM 4.2 mmol/L (3.5-5.1); SODIUM 135 mmol/L (136-145); TCO2 29 mmol/L (25-35)
[2017-02-13] MEDS: NORCO-10 PO PRN ×4 (06:34→20:09)
[2017-02-13] MEDS: HUMULIN R SUBQ SCH ×5 (06:35→20:30)
[2017-02-13] MEDS: PULMICORT INH SCH ×2 (07:43→19:20)
[2017-02-13] MEDS: MUCOMYST 20% INH SCH ×2 (07:43→19:20)
[2017-02-13] MEDS ORDERED: ASPIRIN PR SCH (09:00)
[2017-02-13] MEDS: MIRALAX PO SCH (09:16)
[2017-02-13] MEDS: ARICEPT PO SCH (09:16)
[2017-02-13] MEDS: CENTRUM TABLET PO SCH (09:16)
[2017-02-13] MEDS: ICAR-C PO SCH (09:16)
[2017-02-13] MEDS: ZINC SULFATE PO SCH (09:16)
[2017-02-13] MEDS: LANTUS SUBQ SCH ×2 (09:16→20:30)
[2017-02-13] MEDS: PROTONIX PO SCH ×2 (09:16→20:08)
[2017-02-13] MEDS: ASPIRIN EC PO SCH (09:16)
--- NOTE | 2017-02-13 09:26 | ECHO REPORT ---
ORDER DATE: 02/12/2017 DATE OF STUDY: 02/12/2017. ECHOCARDIOGRAPHIC MEASUREMENTS: 1. Left ventricular end-diastolic diameter 5.2. 2. End-systolic diameter 3.3. 3. Posterior wall thickness 1.1. 4. Septal thickness 1.3. 5. Left atrium 4.0. 6. Aortic root 3.0. SUMMARY: 1. Technically difficult study due to limited acoustic window quality. Intravenous echo contrast agent Definity was utilized to enhance endocardial definition. 2. Aortic, mitral and tricuspid valves are without evidence of structural abnormality. Pulmonic valve is not seen. There is no Doppler evidence of valvular dysfunction. Peak gradient across aortic valve is 13 mmHg. The aortic root is normal in size. 3. Normal left ventricular chamber size with mild concentric left hypertrophy suggested. Estimated left ejection fraction appears to be at least 65%. No regional wall motion abnormality can be appreciated. Doppler suggests grade 1 left ventricular diastolic dysfunction. Left atrium is borderline enlarged. Right atrium and right ventricle are normal in size with normal right ventricular systolic function. 4. No pericardial effusion. 5. Inferior vena cava not seen. CONCLUSIONS: 1. Technically difficult study. 2. No significant valvular abnormality. 3. Mild concentric left hypertrophy with estimated left ejection fraction at least 65%. 4. Grade 1 left ventricular diastolic dysfunction. 5. Mild left atrial enlargement. cc: MD Jose Feliciano MD
[2017-02-13] MEDS: LEVAQUIN 500 MG in NS 100 ML IV SCH ×2 (13:50→18:02)
--- NOTE | 2017-02-13 14:17 | PROGRESS NOTE ---
DATE: 02/13/2017 Ms. Dyer is awake, alert, attentive. She is a little bit hard of hearing but communicates well when she hears me. Her right hemiparesis seems to be baseline now. Systolic blood pressures have ranged 100s to 160s in the last 48 hours. She is now on aspirin, statin, insulin. She continues donepezil. I do not have anything to add to the suggestions Dr. Romero made earlier for neurology. Would continue aspirin, continue statin, continue treating blood sugar aggressively, continue to follow blood pressure and consider treating that if it remains significantly elevated. Regarding her baseline dementia, I would continue donepezil and consider adding memantine electively as an outpatient unless that has already been tried. I note lorazepam on her p.r.n. medicines, and we need to be careful with that in light of her cognitive impairment. Thanks for asking Neurology to see Ms. Dyer. cc: MD CLAUDIA Horton III
--- NOTE | 2017-02-13 18:20 | PROGRESS NOTE ---
DATE: 02/13/2017 SUBJECTIVE: The patient is sitting up, eating lunch. She complains of chest congestion. OBJECTIVE: Vital Signs: Temperature 98 degrees, blood pressure 152/86, heart rate 80, respirations 18, O2 saturations 99% on 2 L nasal cannula. General: This is a morbidly-obese female, lying in bed, in no acute distress. Heart: S1, S2. Normal. Regular rate and rhythm. Lungs: Coarse breath sounds bilaterally. Abdomen: Positive bowel sounds. Soft, nontender, nondistended. Neurologic: The patient is awake and alert. LABORATORIES: Sodium 135, hemoglobin 10, hematocrit 32, platelets 246,000. BUN 10, creatinine 0.6, glucose 185. ASSESSMENT AND PLAN: 1. Transient ischemic attack. Continue on aspirin and Lipitor. 2. Urinary tract infection, secondary to Enterobacter cloacae. Continue on cefepime. 3. Dementia. Continue on Aricept. 4. Acute bronchitis. Continue on cefepime and bronchodilator therapy. 5. Situational depression. Continue on Celexa. 6. Gastroesophageal reflux disease. Continue on Protonix. 7. Insulin-dependent diabetes mellitus. Continue on Lantus. 8. Disposition: Hopefully, the patient will be able to be discharged to the [facility] this week. cc: Zaida Lawrence MD
[2017-02-13] MEDS: ATIVAN IV PRN (20:07)
[2017-02-13] MEDS: MUCINEX PO SCH (20:08)
[2017-02-13] MEDS: MAXIPIME 1 GM in NS 50 ML IV SCH (20:08)
[2017-02-13] MEDS: CELEXA PO SCH (20:09)
[2017-02-13] MEDS: LIPITOR PO SCH (20:35)
[2017-02-14] MEDS: CARAFATE LIQUID PO SCH ×6 (01:50→21:06)
[2017-02-14] MEDS: NORCO-10 PO PRN ×4 (03:11→16:25)
[2017-02-14] MEDS: DUONEB (A & A) INH SCH ×4 (03:36→22:08)
[2017-02-14] MEDS: ATIVAN IV PRN ×3 (05:29→21:03)
[2017-02-14 06:49] LABS: AGAP 13; BUN 12 mg/dL (8-22); CHLORIDE 94 mmol/L (98-107); COSMO 270; SODIUM 134 mmol/L (136-145); TCO2 27 mmol/L (25-35)
--- NOTE | 2017-02-14 07:23 | Diag Imaging Result Doc PS360 ---
EXAM: CHEST-PORTABLE - 02/14/2017 HISTORY: dyspnea TECHNIQUE: Portable chest 0500 COMPARISON: 02/11/2017 FINDINGS: There is stable borderline cardiomegaly. There is stable tortuosity of thoracic aorta. Inspiration is mildly shallow. There is stable generalized mild interstitial marking prominence. Compared to previous exam, there are no acute changes identified. IMPRESSION: Stable exam compared to prior. Electronically signed by Orlando Villa 02/14/2017 7:21 AM
[2017-02-14] MEDS: HUMULIN R SUBQ SCH ×4 (07:45→21:30)
[2017-02-14] MEDS: CENTRUM TABLET PO SCH (08:50)
[2017-02-14] MEDS: ZINC SULFATE PO SCH (08:50)
[2017-02-14] MEDS: ARICEPT PO SCH (08:50)
[2017-02-14] MEDS: MUCINEX PO SCH ×2 (08:50→21:07)
[2017-02-14] MEDS: LANTUS SUBQ SCH ×2 (08:50→21:31)
[2017-02-14] MEDS: PROTONIX PO SCH ×2 (08:50→21:07)
[2017-02-14] MEDS: ASPIRIN EC PO SCH (08:50)
[2017-02-14] MEDS: ICAR-C PO SCH (08:50)
[2017-02-14] MEDS: MIRALAX PO SCH (08:51)
[2017-02-14] MEDS: PULMICORT INH SCH ×2 (09:15→19:10)
[2017-02-14] MEDS: MUCOMYST 20% INH SCH ×2 (09:15→19:06)
--- NOTE | 2017-02-14 10:34 | PROGRESS NOTE ---
DATE: 02/14/2017 Ms. Dyer was initially asleep, easily waked, remained alert and attentive during my conversation. On brief exam, her right hemiparesis seems stable and may be back to her preadmission baseline. She reports that she feels well enough to be discharged from the hospital. I do not have any new suggestion from neurologic standpoint. Thanks again for asking neurology to see Ms. Dyer. cc: MD CLAUDIA Horton III
--- NOTE | 2017-02-14 11:56 | Carotid Study ---
DATE: 02/12/2017 PROCEDURE: Carotid duplex imaging. REFERRING PHYSICIAN: Zaida Lawrence MD. INTERPRETING PHYSICIAN: Darek Tena MD. TECH: Von. INDICATIONS: The patient is here for a followup of his stenosis. The study was somewhat difficult due to the positioning problem, and the vessels were deep. The velocities are not recorded in the left distal ICA. The right side is chronically occluded. The left side shows patency. OBSERVED DATA RIGHT LEFT Brachial Blood Pressure Carotid Pulse Bruits: Carotid/Sub DIAGRAM OF ULTRASOUND IMAGING R L RIGHT INT EXT INT EXT LEFT Scott (cm/s) Scott (cm/s) Subclavian 126/8 Subclavian 190/18 CCA Proximal 78/7 CCA Proximal 99/17 CCA Distal 70/8 CCA Distal 94/20 Bulb 56/0 Bulb 82/25 ICA Proximal 0/0 ICA Proximal 74/25 ICA Mid 0/0 ICA Mid 39/11 ICA Distal 0/0 ICA Distal -/- ECA 85/12 ECA -/- Vertebral 41/9 ante Vertebral -/- ICA/CCA Ratio 0 ICA/CCA Ratio Not able to be determined % Stenosis 100% % Stenosis Not able to be determined ASSESSMENT: Chronic right total internal occlusion. The left side shows no significant change as much as we can identify. The study is quite limited due to the deep vessels and the patient's positioning problem. cc: MD Zaida Knutson MD [facility]
[2017-02-14] MEDS: MAXIPIME 1 GM in NS 50 ML IV SCH ×2 (12:12→21:05)
--- NOTE | 2017-02-14 14:49 | PROGRESS NOTE ---
DATE: 02/14/2017 SUBJECTIVE: The patient is resting comfortably in bed. She is a little lethargic today. No acute events noted overnight. OBJECTIVE: Vital Signs: Temperature 98 degrees, blood pressure 162/68, heart rate 84, respirations 16, O2 saturations 100% on 2 L nasal cannula. General: This is an elderly female, lying in bed, in no acute distress. HEENT: Head normocephalic and atraumatic. Heart: S1, S2. Normal. Regular rate and rhythm. Lungs: Clear to auscultation bilaterally. No wheezes, no rales. No rhonchi. Abdomen: Positive bowel sounds. Soft, nontender, nondistended. Extremities: The patient has bilateral lower extremity stumps. Neurologic: The patient is alert and oriented to person and place and year. LABS: Sodium 134, potassium 4, chloride 94, CO2 27, chloride 94, BUN 12, creatinine 0.5, glucose 136. ASSESSMENT AND PLAN: 1. Transient ischemic attack. Continue on aspirin and Lipitor. 2. Urinary tract infection secondary to Enterobacter cloacae. Continue on cefepime. 3. Dementia. Continue on Aricept. 4. Acute bronchitis. Continue on antibiotic therapy and bronchodilator therapy. 5. Situational depression. Continue on Celexa. 6. Gastroesophageal reflux disease. Continue on Protonix. 7. Insulin-dependent diabetes mellitus. Continue on Lantus plus sliding scale insulin. 8. Disposition. Hopefully the patient should be stable for discharge back to the [facility] on Saturday. cc: Zaida Lawrence MD
[2017-02-14] MEDS: LEVAQUIN 500 MG in NS 100 ML IV SCH (17:41)
[2017-02-14] MEDS: CELEXA PO SCH (21:07)
[2017-02-14] MEDS: LIPITOR PO SCH (21:07)
[2017-02-15] MEDS: CARAFATE LIQUID PO SCH ×3 (03:14→09:28)
[2017-02-15] MEDS: DUONEB (A & A) INH SCH ×2 (03:19→09:46)
[2017-02-15 05:21] LABS: HEMATOCRIT 35.2 % (37.0-47.0); HEMOGLOBIN 11.6 g/dL (12.0-16.0); MCH 30.1 PG (27-31); MCV 91.2 FL (81-99); MPV 8.7 FL (7.4-10.4); RBC 3.86 XMIL (4.2-5.4)
[2017-02-15] MEDS: NORCO-10 PO PRN ×2 (05:21→10:58)
[2017-02-15 05:48] LABS: AGAP 13; BUN 12 mg/dL (8-22); CALCIUM 9.3 mg/dL (8.8-10.2); CHLORIDE 97 mmol/L (98-107); COSMO 276; POTASSIUM 3.7 mmol/L (3.5-5.1); SODIUM 138 mmol/L (136-145); TCO2 28 mmol/L (25-35)
[2017-02-15] MEDS: HUMULIN R SUBQ SCH ×2 (06:09→13:25)
[2017-02-15] MEDS: ARICEPT PO SCH (09:28)
[2017-02-15] MEDS: LANTUS SUBQ SCH (09:28)
[2017-02-15] MEDS: ZINC SULFATE PO SCH (09:28)
[2017-02-15] MEDS: PROTONIX PO SCH (09:28)
[2017-02-15] MEDS: ASPIRIN EC PO SCH (09:29)
[2017-02-15] MEDS: ATIVAN IV PRN ×2 (09:29→13:47)
[2017-02-15] MEDS: CENTRUM TABLET PO SCH (09:29)
[2017-02-15] MEDS: MAXIPIME 1 GM in NS 50 ML IV SCH (09:29)
[2017-02-15] MEDS: ICAR-C PO SCH (09:29)
[2017-02-15] MEDS: MIRALAX PO SCH (09:29)
[2017-02-15] MEDS: MUCINEX PO SCH (09:29)
[2017-02-15] MEDS: PULMICORT INH SCH (09:46)
[2017-02-15] MEDS: MUCOMYST 20% INH SCH (09:46)
[2017-02-15 11:31] VITALS: BP 156/85
--- NOTE | 2017-02-15 12:23 | DISCHARGE SUMMARY ---
ADMISSION DATE: 02/11/2017 DISCHARGE DATE: CONSULTATIONS: 1. Jose Akins MD with Cardiology. 2. Donnie Castro III, MD with Neurology. PERTINENT PROCEDURES: 1. Head CT showed chronic ischemic changes with left mastoid effusion. 2. Echocardiogram showed mild concentric left hypertrophy with an EF of 65%. 3. Brain MRA showed occlusion of the right distal internal carotid artery. 4. Brain MRI showed old infarcts at frontotemporal and posterior parietal occipital lobes on the right and old lacunar infarct at the left, coude nucleus. No visible acute intracranial abnormality. No evidence of acute infarct. There are bilateral mastoid effusions noted. 5. Carotid Dopplers showed chronic right total internal occlusion. The left side shows no significant change. The study is quite limited due to the deep vessels and the patient's positioning problem. DISCHARGE DIAGNOSES: 1. Transient ischemic attack. Continue aspirin and Lipitor. Evaluated by Neurology. Continues to have right-sided hemiparesis that is stable. Appears to be back at baseline. 2. Urinary tract infection secondary to Enterobacter cloacae. Initially treated with IV antibiotics. The patient will be discharged on p.o. Levaquin. 3. Dementia. Continue Aricept. 4. Acute bronchitis. The patient will continue p.o. antibiotics as well as bronchodilator therapy. Aggressive pulmonary toilet. 5. Situational depression. Continue Celexa. 6. Gastroesophageal reflux disease. Continue proton pump inhibitor. 7. Insulin-dependent diabetes mellitus type 2. Continue Lantus. 8. Hypertension stable. Continue home medications. 9. Hyperlipidemia. Continue statin. 10. Iron deficiency anemia. Stable. HOSPITAL COURSE: Ms. Rashida Dyer is a 67-year-old, female with a history of CVA with residual right-sided weakness where she required a PEG tube secondary to decreased swallowing abilities; that has since been discontinued since early 2017. She is now able to tolerate a mechanical soft diet. She has diabetes mellitus type 2 insulin dependent, hypertension, hyperlipidemia, COPD, dementia, GERD, iron deficiency anemia, chronic constipation, upper GI bleed, and depression. She is a resident of [facility]. She reported she started having numbness on the right side of her cheek that went down her right arm into her thigh. She was unable to tell if she noticed any weakness on the right side of her body. Per the POTATO INSPECTOR's assessment on her notes, her tongue was midline. She had a mild right facial droop. Her speech was dysarthric but she was oriented to name, place, and year. She had significantly decreased hearing on her right side. It was unknown when her initial numbness had begun. Her initial CT scan did not show any acute findings. Other workup revealed she had a urinary tract infection. She was treated with IV Levaquin. She was admitted and sent for MRI and MRA of the brain. She was initiated on neuro checks with a cardiology consult. Her echo showed left hypertrophy as well as an EF of 65%. Brain MRA did show occlusion of the right distal internal carotid artery. Brain MRI did show old infarcts at the frontotemporal and posterior parietal occipital lobes on the right. Old lacunar infarcts and left coude nucleus, but no visible acute intracranial abnormalities. No evidence of acute infarct, but there were bilateral mastoid effusions noted. Carotid Dopplers did show chronic right total internal occlusion. The left side showed no significant change. Cardiology was consulted, Dr. Jose Akins. They would not pursue a PRINCESS as there has been no evidence of an embolic event recently. He will arrange for an outpatient NEGRA to evaluate for any occult atrial fibrillation. Neurology was consulted. They felt that her symptoms most likely represented a masking of her prior stroke symptoms in the setting of her current UTI and she should continue to improve as the infection is treated and continue her medications for secondary stroke prevention. While in the hospital, she was complaining chest congestion. She was started on medication for acute bronchitis with IV antibiotics and bronchodilator therapy and aggressive pulmonary toilet. Ms. Dyer has remain stable throughout her hospital admission. She has remained alert and oriented x4. Her right hemiparesis seems to be back at her baseline now. She will need to continue on her aspirin, her statin. Continue aggressively treating her blood sugars, as well as her blood pressures. Regarding her baseline dementia, Neurology will continue her donepezil and consider adding memantine electively as an outpatient unless that has already been tried. He would caution again using any Ativan given her dementia. Ms. Dyer is appropriate for discharge back to [facility] today. VITAL SIGNS: Temperature is 98.2 degrees, heart rate 88, respirations 20, blood pressure is 139/75, O2 is 100% on 2 L nasal cannula. DISCHARGE DIET: Mechanical soft. Continue with aspiration precautions. DISCHARGE MEDICATIONS: As per Dr. Tucker. Please see MAR. FOLLOWUP: Ms. Dyer is being discharged back to [facility]. She can return to the ED for any worsening of symptoms. TIME SPENT: Discharge time was greater than 30 minutes. Dictated by AUGIE Gibbs for Reynaldo Tucker MD cc: Reynaldo Tucker MD I have seen and provided face to face evaluation of the patient including revision of his labs, imagine studies and medications and he is clinically stable for discharge. CLAUDIA
[2017-02-15] MEDS ORDERED: LEVAQUIN PO SCH (18:00)
== END 2017-02-15 14:27 ==
LOC: SUPCPDRO → ED 11:12 → SUATTDRO 16:24 → 4N 16:24
PROVIDERS: ATTEND Internal Medicine

== ENCOUNTER 2019-03-20 01:25 | Inpatient (IN) ==
[2019-03-20] MEDS ORDERED: VANCOMYCIN 1 GM/NS 1 GM/250 ML IVPB IV ONE (03:05)
[2019-03-20] MEDS ORDERED: ZOSYN 3.375 GM in NS 50 ML IV ONE (03:05)
[2019-03-20] MEDS ORDERED: NS 1,000 ML IV ONE (03:05)
[2019-03-20 03:16] LABS: BASO# 0.02 X1000 (0.0-0.2); BASO% 0.1 % (0.0-0.8); EOS# 0.02 X1000 (0.0-0.7); EOS% 0.1 % (0.0-10.0); HEMATOCRIT 30.5 % (37.0-47.0); HEMOGLOBIN 9.4 g/dL (12.0-16.0); IMM GRAN# 0.05 X1000 (0.0-0.04); IMM GRAN% 0.3 % (0.0-0.5); LYMPH# 1.79 X1000 (1.2-3.4); LYMPH% 10.7 % (20.5-51.1); MCHC 30.8 g/dL (33-37); MCV 94.1 FL (81-99); MONO# 1.77 X1000 (0.11-0.59); MONO% 10.6 % (1.7-9.3); MPV 9.3 FL (7.4-10.4); NEUT# 13.01 X1000 (1.4-6.5); NEUT% 78.2 % (42.2-75.2); PLT 220 X1000 (130-400); RBC 3.24 XMIL (4.2-5.4); RDW 14.9 % (11.5-14.5); WBC 16.66 X1000 (4.8-10.8)
[2019-03-20 03:25] LABS: ALB/GLOB RATIO 0.8; ALBUMIN 3.3 g/dL (3.5-5.0); CALCIUM 8.7 mg/dL (8.8-10.2); CREATININE 1.2 mg/dL (0.5-0.9); POTASSIUM 4.2 mmol/L (3.5-5.1); TOTAL BILIRUBIN 0.23 mg/dL (0.20-1.00); TOTAL PROTEIN 7.2 g/dL (6.3-8.3)
--- NOTE | 2019-03-20 03:59 | PROVIDER DOCUMENTATION ---
This chart was entered by Ron Grey Scribe, acting as scribe for Kelvin Barillas MD. HPI-General Adult - General Chief Complaint: Shortness of Breath Stated Complaint: POSSIBLE ASPIRATION Time Seen by Provider: 03/20/19 01:31 Source: patient, EMS Allergies/Adverse Reactions: Patient Allergies Allergy/AdvReac Type Severity Reaction Status Date / Time JUAN Inhibitors Allergy Severe SWELLING Verified 03/20/19 03:21 Sulfa (Sulfonamide Allergy Intermediate RASH Verified 03/20/19 03:21 Antibiotics) [Sulfa(Sulfonamide Antibiotics)] Home Medications: Home Medication List Medication Instructions Recorded Confirmed Last Taken Type Aspirin 81 mg PO DAILY 03/01/16 06/27/18 05/11/17 History Iron Carbonyl/Ascorbic Acid 1 each PO DAILY 03/01/16 06/27/18 05/11/17 History [Icar-C] Donepezil [Aricept] 10 mg PEG DAILY #30 tablet 06/15/16 06/27/18 05/11/17 Rx Pantoprazole [Protonix] 40 mg PO BID #90 tablet 06/15/16 06/27/18 05/11/17 Rx Gabapentin [Neurontin] 600 mg PO BID 08/13/16 06/27/18 05/11/17 History Metformin [Glucophage] 500 mg PO BID CC 08/13/16 06/27/18 05/11/17 History Atorvastatin Calcium 40 mg PO DAILY #0 02/14/17 06/27/18 05/11/17 Rx Ergocalciferol (Vitamin D2) 50,000 unit PO Q7D #0 02/14/17 06/27/18 05/11/17 Rx [Vitamin D2] Trazodone [Desyrel] 50 mg PO QHS #30 tablet 02/14/17 06/27/18 05/11/17 Rx Citalopram Hydrobromide 20 mg PO QHS 05/12/17 06/27/18 05/11/17 History [Citalopram HBr] Magnesium Oxide [Mag-Ox] 400 mg PO BID 05/12/17 06/27/18 05/05/17 History Furosemide [Lasix] 20 mg PO DAILY 05/02/18 06/27/18 Unknown History Hydrocodone/Acetaminophen [[place] 5 mg PO PRN PRN 05/02/18 06/27/18 06/22/18 16:30 History 5-325 Tablet] Insulin Glargine [Lantus] 15 units SQ DAILY 05/02/18 06/27/18 Unknown History Insulin Glargine [Lantus] 25 unit SUBQ DAILY 05/02/18 06/27/18 Unknown History Polyethylene Glycol 3350 [Miralax] 17 gm PO DAILY 05/02/18 06/27/18 Unknown History Loratadine [Claritin] 10 mg PO DAILY tablet 05/07/18 06/27/18 Unknown Rx Levofloxacin [Levaquin] 500 mg PO DAILY #10 tab 06/27/18 Unknown Rx Review of Systems - Adult - REVIEW OF SYSTEMS - ADULT ROS:: limited per condition Constitutional: reports: see HPI Gastrointestinal: reports: see HPI, vomiting Genitourinary: reports: no symptoms reported Musculoskeletal: reports: no symptoms reported Integumentary: reports: no symptoms reported Neurological: reports: no symptoms reported Psychiatric: reports: no symptoms reported Endocrine: reports: no symptoms reported Hematologic/Lymphatic: reports: no symptoms reported Allergic/Immunologic: reports: no symptoms reported All Other Systems: Reviewed and Negative Past History - Adult - PAST MEDICAL HISTORY-ADULT Review of Records: reports: Old Records Reviewed, Nursing Assessment Review, Medications Reviewed, Social history reviewed & non-contributory. Major Childhood Illnesses: reports: denies history Cardiovascular: reports: HTN, hyperlipidemia Respiratory: reports: denies history Gastrointestinal: reports: denies history Obstetrical/Gynecological: reports: denies history Genitourinary: reports: kidney disease Musculoskeletal: reports: denies history Neurological: reports: CVA (2008 left side, 03/2015 right side), stroke deficits (right sided) Endocrine/Immune: reports: Diabetes Other Conditions: reports: denies history - PRIOR SURGERIES/PROCEDURES Surgical/Procedure History: reports: hysterectomy - PRIOR HOSPITALIZATIONS Prior Hospitalizations: reports: none - IMMUNIZATION STATUS Childhood Immunizations: See Nurse Assessment Flu Vaccine: See Nurse Assessment - FAMILY HISTORY Family History: reviewed, not pertinent - SOCIAL HISTORY Smoking: non-smoker, quit greater than 1 year Substance Use: none/never, denies Alcohol Use Frequency: never Physical Exam-General - CONSTITUTIONAL General Appearance: no apparent distress - EYES Eyes: PERRL/EOMI - HEAD, EARS, NOSE, MOUTH & THROAT HENMT: normocephalic/atraumatic - NECK Neck: normal inspection - RESPIRATORY Respiratory: no respiratory distress, no accessory muscle use, crackles - CARDIOVASCULAR Cardiovascular: regular rate, rhythm - GASTROINTESTINAL (ABDOMEN) Abdominal Exam: non tender, soft - LYMPHATIC Lymphatic: no adenopathy - MUSCULOSKELETAL Back Exam: normal inspection Extremity: normal range of motion - SKIN Integumentary: normal color - NEUROLOGIC Neurologic: grossly normal - PSYCHIATRIC Psych/Mental Status: normal mood/affect Progress - PLAN OF CARE/RESULTS Result Diagrams: 03/20/19 02:04 03/20/19 02:04 Departure - Departure Date of Disposition Decision: 03/20/19 Time of Disposition Decision: 03:58 DIAGNOSIS: Aspiration pneumonia Qualifiers: Aspiration pneumonia type: unspecified Laterality: right Lung location: lower lobe of lung Qualified Code(s): J69.0 - Pneumonitis due to inhalation of food and vomit Disposition: ADMITTED INPATIENT 09 Certified Medical Emergency: Emergent Condition: Stable Additional Freetext Instructions: ED Follow Up Instructions: You have been treated by a care provider in the Emergency Department. These instructions are being provided to you so you can have an understanding of how to care for yourself upon discharge. Upon discharge from the Emergency Department, you are responsible for making arrangements for follow-up care by a physician of your choice. Take all prescribed medications as directed. Return to the Emergency Department immediately for any new or worsening symptoms. You may call the Physician Referral phone number at [phone] to obtain a list of Physicians who are taking new patients. Referrals and Follow-Ups: Benjamin Kim MD [Primary Care Provider] - - Critical Care Note This patient required my direct & personal management of CC.: No Attestation - Physician/ CHICHI Attestation Patient care was provided by Advanced Practice Provider:: No The physician spent face to face time with patient:: Yes Advanced Practice Provider documentation review:: Supervising physician onsite and consulted in the evaluation and care of this patient. The physician did have a face to face encounter with the patient. This chart was documented by the indicated scribe, (Ron Grey Scribe) and accurately reflects the services I performed and decisions made by me, Kelvin Barillas MD, as attested by the provider's signature.
--- NOTE | 2019-03-20 04:29 | EKG Report ---
Test Performed on : 03/20/2019 04:22:57 AM Test Reason : sob Blood Pressure : / mmHG Vent. Rate : 094 BPM Atrial Rate : 094 BPM P-R Int : 146 ms QRS Dur : 074 ms QT Int : 344 ms P-R-T Axes : 038 006 040 degrees QTc Int : 430 ms Normal sinus rhythm. Nonspecific T wave abnormality Abnormal ECG When compared with ECG of 27-JUN-2018 03:23, Nonspecific T wave abnormality, worse in Anterior leads Unconfirmed Result
[2019-03-20 05:23] LABS: URINE SOURCE CATH
[2019-03-20 05:30] LABS: BILIRUBIN URINE NEGATIVE (NEGATIVE); BLOOD URINE MODERATE (NEGATIVE); COLOR ORANGE; GLUCOSE URINE NEGATIVE (NEGATIVE); KETONE URINE TRACE mg/dL (NEGATIVE); LEUKOCYTES URINE LARGE (NEGATIVE); NITRITE URINE NEGATIVE (NEGATIVE); PH URINE 6.5; PROTEIN URINE 200 mg/dL (NEGATIVE); SP GRAVITY URINE 1.025; TURBIDITY URINE TURBID (CLEAR); UROBILINOGEN URINE NORMAL (NORMAL)
[2019-03-20 05:39] LABS: UR EPITHELIAL CELLS >10 /HPF (<10); URINE BACTERIA 4+ /HPF; URINE RBC TNTC /HPF (<10); URINE WBC TNTC /HPF (<10)
[2019-03-20] MEDS ORDERED: VANCOMYCIN IV PER PHARMACY MISC SCH (05:45)
[2019-03-20 05:51] LABS: URINE CASTS NONE SEEN; URINE CRYSTALS NONE SEEN; URINE SMALL ROUND CELLS NONE SEEN; URINE YEAST PRESENT
--- NOTE | 2019-03-20 06:01 | Diag Imaging Result Doc PS360 ---
EXAM: CHEST-1 VIEW HISTORY: sob TECHNIQUE: Chest single view COMPARISON: 06/27/2018 FINDINGS: Poor inspiratory effort. The heart is not enlarged. The vessels are mildly distended. There are mild increased markings in the upper left lung. No consolidation. No effusion identified. IMPRESSION: Mild pulmonary edema. Questionable infiltrate in the upper left lung. Follow-up PA and lateral recommended. Electronically signed by Jared Denny 03/20/2019 5:59 AM
[2019-03-20 06:31] LABS: ALLEN TEST YES; BE 6.9 mmoll (-3.0-3.0); BLOOD TYPE ARTERIAL; HCO3-(ACT) 30.3 mmoll (20.0-26.0); METHB 1.2 % (0.0-1.5); O2(CT) 11.7 mL/dL (15.0-23.0); O2HB 93.6 % (95.0-99.0); PO2(98.6) 69 mmHg (60-100); SAMPLE BLOOD; SAO2 96.6 % (95.0-100.0); THB 8.8 g/dL (11.5-17.4); pH(98.6) 7.38 (7.35-7.45)
[2019-03-20 06:32] LABS: MODALITY CANNULA
[2019-03-20 06:34] LABS: PCO2(98.6) 56 mmHg (35-45)
--- NOTE | 2019-03-20 06:39 | HISTORY AND PHYSICAL ---
ADDENDUM: To history and physical dictated by the nurse practitioner. I agree with most components of history, physical, assessment, and plan. In brief, Ms. Gomez malone it is a 69-year-old lady with past medical history of cerebrovascular accident status post right-sided hemiparesis, essential hypertension, insulin- dependent diabetes mellitus, iron deficiency anemia, chronic GERD, peripheral arterial disease status post bilateral above-knee amputation, who was sent from [facility] facility for chief complaints of cough and hypoxia with oxygen saturation of around 85% on room air. Apparently, patient had an episode of vomiting yesterday morning. Since then, she has had frequent coughing. The patient also mentioned in the emergency room that she has had trouble swallowing since last several days. In the emergency room, she was found to have a fever of 101.5 degrees, tachycardic with pulse of 107. Chest x-ray and urinalysis were performed and they are concerning for right lower lobe pneumonia and urinary tract infection, so the Hospitalist Team was consulted for further management. At the time of my evaluation, patient is sleepy and is snoring and with strong verbal stimuli, she is only able to keep awake only for some time and lapses back into sleep. VITAL SIGNS: Currently temperature of 99.6 degrees, pulse of 93, respiratory 22, blood pressure 100/53, saturation 97% on 4 L nasal cannula. PHYSICAL EXAMINATION: GENERAL: Does not appear in acute distress. Currently snoring. LUNGS: Air entry appears bilaterally equal. No wheeze, rhonchi. Mild inframammary crackles. CARDIOVASCULAR: S1, S2 normal. Regular. No murmur or gallop. ABDOMEN: Obese, soft, nontender. EXTREMITIES: Bilateral above-knee amputation. GENITOURINARY: She has a urine catheter. NEUROLOGIC: She is currently too sleepy to allow proper neurologic examination. LABORATORY DATA: Suggestive of leukocytosis, normocytic anemia, normal platelet count, acute kidney injury, pyuria, microbiology. No positive data. IMAGING: Chest x-ray has been performed which does suggest she has increased pulmonary vascular marking, especially on the right side, and right lower lobe infiltrate. ASSESSMENT AND PLAN: 1. Sepsis due to acute cystitis associated with Moralez catheter and right lower lobe pneumonia. 2. Right lower lobe healthcare-associated aspiration pneumonia. 3. Long-standing indwelling Moralez catheter. 4. History of cerebrovascular accident status post residual right-sided hemiparesis. 5. Essential hypertension. 6. Insulin-dependent diabetes mellitus. 7. Chronic anemia. 8. Peripheral arterial disease, status post bilateral above-knee amputation. PLAN: I will hydrate the patient with intravenous fluids, start patient on broad-spectrum intravenous vancomycin and Zosyn. Follow up with sputum culture, urine streptococcal and Legionella antigen as well as blood culture and resume most of her home medications. I will also follow up the urine culture. She does appear to have normal lactate at the moment. I will monitor patient in PVC unit on the telemetry. cc: Ken Razo MD
[2019-03-20] MEDS ORDERED: ZOFRAN IV PRN (07:18)
[2019-03-20] MEDS: HUMALOG SUBQ SCH ×4 (07:51→23:00)
[2019-03-20] MEDS ORDERED: CALMOSEPTINE OINTMENT TOP PRN (07:52)
[2019-03-20] MEDS: LIPITOR PO SCH (08:09)
[2019-03-20] MEDS: ICAR-C PO SCH (08:09)
[2019-03-20] MEDS: ASPIRIN PO SCH (08:09)
[2019-03-20] MEDS: MIRALAX PO SCH (08:09)
[2019-03-20] MEDS: PROTONIX PO SCH ×2 (08:09→22:39)
[2019-03-20] MEDS: FLOMAX PO SCH (08:10)
[2019-03-20] MEDS: DEPAKOTE SPRINKLE PO SCH ×2 (08:10→22:39)
[2019-03-20] MEDS: NEURONTIN PO SCH ×2 (08:10→22:40)
[2019-03-20] MEDS ORDERED: VANCOMYCIN 500 MG in NS 150 ML IV ONE (09:00)
[2019-03-20 09:45] LABS: ALLEN TEST YES; BE 6.9 mmoll (-3.0-3.0); BLOOD TYPE ARTERIAL; HCO3-(ACT) 30.3 mmoll (20.0-26.0); METHB 1.3 % (0.0-1.5); O2(CT) 12.4 mL/dL (15.0-23.0); O2HB 95.6 % (95.0-99.0); PO2(98.6) 87 mmHg (60-100); SAMPLE BLOOD; SAO2 98.4 % (95.0-100.0); THB 9.1 g/dL (11.5-17.4); pH(98.6) 7.38 (7.35-7.45)
[2019-03-20 09:50] LABS: MODALITY BI PAP; PCO2(98.6) 56 mmHg (35-45)
--- NOTE | 2019-03-20 09:51 | PROGRESS NOTE ---
DATE: 03/20/2019 SUBJECTIVE: Ms. Dyer is admitted last night. She is a patient of Dr. Benjamin Kim. This is a 69-year-old female with past medical history of cerebrovascular accident status post right-sided hemiparesis, essential hypertension, insulin-dependent diabetes mellitus, iron deficiency anemia, chronic gastroesophageal reflux disease, peripheral arterial disease, status post bilateral above the knee amputation, who was sent from half-way facility for chief complaint of cough and hypoxia with oxygen saturation 85% on room air. The patient had an episode of vomiting the day before and frequent coughing. In the emergency room, found to have fever of 101, pulse of 107. Urinalysis was performed and questionable right lower lobe pneumonia and urinary tract infection was entertained, so admitted. She is on BiPAP, seems to be breathing comfortably, rested well, remains afebrile. OBJECTIVE: Vital Signs: Temperature 98.3 degrees, pulse 80, respirations 17, blood pressure 96/48. Eyes: Pupils are equal and round. Lungs: Clear in all lung magdaleno. Cardiovascular exam: Regular rhythm and rate without murmur or S3. Abdomen: Soft. Skin: Warm and dry. LABORATORY DATA: White count 16,660, hematocrit 30, platelet count 220,000. Sodium 140, potassium 4.2, chloride 97. BUN 19, creatinine 1.2. ProBNP 1255. Urinalysis: Too numerous to count white blood cells, too numerous to count red blood cells, 4+ bacteria. Blood gas: A pH is 7.38, pCO2 56, PO2 69, O2 saturation is 96% on 36% FiO2. X-RAY DATA: Mild pulmonary edema, questionable infiltrate in the upper left lung. ASSESSMENT AND PLAN: 1. Sepsis suspected due to acute cystitis associated with Moralez catheter and right lower lobe pneumonia. I suspect the sepsis is more likely from the pneumonia, but possible pyelonephritis is there as well. 2. Right lower lobe healthcare-associated aspiration pneumonia. 3. Longstanding indwelling Moralez catheter. 4. History of cerebrovascular accident, status post right-sided hemiparesis. 5. Essential hypertension. 6. Diabetes mellitus type 2. 7. Chronic anemia. 8. Peripheral artery disease, status post bilateral snniy-ycl-enns amputation. Continue IV hydration. She is on IV vancomycin, Zosyn. Sputum culture pending. We checked for streptococcal Legionella antigen. Blood cultures pending. Review of her orders: She is on aspirin 81 mg a day, Lipitor 40 mg a day, Depakote 125 mg p.o. b.i.d. Neurontin 100 mg b.i.d., iron carbonyl, ascorbic acid 1 a day, Protonix 40 mg b.i.d., MiraLAX 17 g daily, vancomycin 500 mg IV q. 24 hours I believe. cc: Andrews Carpio MD
[2019-03-20] MEDS: ZOSYN 3.375 GM in NS 50 ML IV SCH ×3 (12:34→23:11)
[2019-03-20] MEDS: TYLENOL PR PRN ×2 (12:34→23:10)
--- NOTE | 2019-03-20 13:01 | HISTORY AND PHYSICAL ---
PRIMARY CARE PROVIDER: Dr. Benjamin Kim at [facility]. DATE AND TIME: 03/20/2019 at 0500. HISTORY OF PRESENT ILLNESS: Ms. Dyer is a 69-year-old, female, who is a resident at [facility]. According to senior living staff, the ER nurse report, and her daughter's report, the patient was sent to the ER for further evaluation for possible aspiration pneumonia. Reportedly, according to the patient's daughter, she has noticed her over the past week having increasing difficulty while eating, stating that she has been getting choked with every bite. She says that over the past week or two as well, she has noticed somewhat of a decline in her normal mentation. She says that usually she knows her name. She knows her. She can follow commands, and that she used to call her every day and talk to her, though she states that she has not been calling her recently. She reports that the patient has been very drowsy, and this is not like her normal. According to the ER nurses report, senior living staff states that earlier in the day on that she possibly got choked while eating and aspirated. Since that time she has had worsening respiratory symptoms and fever. She looks like she was started on antibiotics there of Rocephin and clindamycin, though this evening she was noted to have low oxygen saturation with O2 saturations of the low 80s on room air. She was brought to the ER for further evaluation. The patient upon my examination is very drowsy, was sleeping with her eyes closed in the bed. She was difficult to arouse, though was able to get her to wake up by sitting her up and doing a sternal rub. Once awoken, she would tell me her name and that the month was March, though she would immediately drift back to sleep. I was able to get her to squeeze my hand with her left hand. The patient does have right-sided paralysis from a previous stroke. She also does have a left-sided facial droop noted also. The patient did have audible upper respiratory secretions. Lung sounds were diminished in bilateral bases. It did sound as though she might have some crackles, though due to respiratory noise, lung sounds and heart sounds were difficult to auscultate. She was noted to have a temperature of 101.5 degrees. Room air oxygen saturation was 80%, but since being placed on nasal cannula 4 L, it has improved to 97%. She has been borderline hypotensive, though is maintaining mean arterial pressures in the mid 60s. White blood cell count was elevated at 16,660. Urinalysis did show that she had a urinary tract infection. Given the patient's increased drowsiness, we did repeat a fingerstick blood sugar which was within normal limits at 156. We did perform arterial blood gases, which did show she had a pCO2 of 56, as well as urinary tract infection. Her hypercapnia along with her UTI may be contributing to her worsening encephalopathy. Chest x-ray performed did show mild pulmonary edema and a questionable infiltrate in the left upper lung. Given this, the patient in the ER was initially given a 1 L normal saline bolus. She has been started on antibiotics of vancomycin and Zosyn. Blood culture and sputum cultures have been ordered. She has been placed on supplemental oxygen, as well as we have ordered BiPAP also. Given that she may be having worsening problems swallowing, we will order a swallowing evaluation and place her n.p.o. until that time. REVIEW OF SYSTEMS: Unfortunately review of systems not unable to be performed with the patient at this time due to her current condition and mentation. PAST MEDICAL HISTORY: 1. Previous left-sided CVA with residual right-sided hemiparesis. 2. Hypertension. 3. Diabetes mellitus type 2. 4. Hyperlipidemia. 5. Dementia. 6. Gastroesophageal reflux disease. 7. Iron-deficiency anemia. 8. History of peripheral vascular disease, status post bilateral [id number]-drg-yozq amputations. 9. Recurrent urinary tract infections. 10. COPD. 11. History of gastrointestinal hemorrhage. PAST SURGICAL HISTORY: 1. Bilateral iyzpx-jdz-teoe amputations. 2. Previous PEG tube placement and subsequent discontinuation. 3. Hysterectomy. FAMILY HISTORY: This was unable to be obtained at this time due to the patient's current condition and mentation. SOCIAL HISTORY: The patient according to previous medical records has no known past or present tobacco, alcohol or illicit drug use, though it was noted that she had a history of previous nicotine and cocaine dependence in the past. She currently is a resident at [facility]. ALLERGIES: Patient has allergies to JUAN inhibitors and sulfa. HOME MEDICATIONS: 1. DuoNeb treatments 3 mL inhaled q. 6 hours p.r.n. 2. Aspirin 81 mg p.o. daily. 3. Atorvastatin 40 mg p.o. daily. 4. Rocephin 1 g IM daily. 5. Clindamycin 300 mg p.o. t.i.d. 6. Cranberry fruit extract 425 mg p.o. daily. 7. Divalproex sodium 125 mg p.o. b.i.d. 8. Aricept 10 mg p.o. daily. 9. Vitamin D 2 5000 units p.o. as directed. 10. Lasix 40 mg p.o. daily. 11. Gabapentin 100 mg p.o. b.i.d. 12. Glycopyrrolate 1 mg tablet p.o. q. 8 hours p.r.n. 13. Lantus 15 units subcutaneous daily. 14. Icar C one tablet p.o. daily. 15. Acidophilus capsule 1 p.o. daily. 16. Claritin 10 mg p.o. daily. 17. Magnesium oxide 400 mg p.o. b.i.d. 18. Metformin 500 mg p.o. b.i.d. 19. Remeron 15 mg p.o. daily. 20. Protonix 40 mg p.o. daily. 21. MiraLAX 17 g p.o. daily. 22. Potassium chloride extended release 8 mEq p.o. daily. 23. Flomax 0.4 mg p.o. daily. 24. Trazodone 50 mg p.o. at bedtime. 25. Ziprasidone 20 mg capsules b.i.d. with meals. DIAGNOSTIC DATA/LABORATORY RESULTS: White blood cell count is 16,660, hemoglobin is 9.4, hematocrit 30.5, platelet count is 220. Sodium 140, potassium 4.2, chloride 97, serum bicarbonate is 30. BUN is 19, creatinine 1.2 with a GFR 54, glucose 165, calcium 8.7. Liver function tests within normal limits. Troponin less than 0.01. ProBNP is 1255. Plasma lactate is 1.5. Urine valproic acid level was 33.4. Arterial blood gases were obtained on FiO2 of 36% with a pH of 7.38, pCO2 of 56, PO2 of 69, HC03 30.3 with a base excess of 6.9 and O2 saturation of 96.6. Urinalysis was obtained via catheter; was positive for protein, trace ketones, blood, leukocytes, too numerous to count white blood cells, and 4+ bacteria. EKG showed normal sinus rhythm, nonspecific T-wave abnormality at a rate of 94 with a QTc of 430. Chest x-ray showed mild pulmonary edema with questionable infiltrate in the left upper lung. Follow-up PA and lateral were recommended; this is per Radiology. PHYSICAL EXAMINATION: VITAL SIGNS: Temperature 99.6 degrees, heart rate 93, respirations 22, blood pressure is 103/52 with a MAP of 82, oxygen saturation was 97% on nasal cannula at 4 L. GENERAL: Ms. Dyer is a 69-year-old, female. She was resting in the ER stretcher with her eyes closed. She was in no acute distress. HEENT: Head is atraumatic, normocephalic. Pupils are 2 mm bilaterally. They were equal and round, though it was difficult to assess pupillary response. They did appear to be nonreactive. Oral mucosa is moist. NECK: Supple. Trachea midline. CARDIOVASCULAR: Patient has S1, S2 present. No murmurs, gallops, rubs appreciated with a regular rate and rhythm. PULMONARY: Patient has diminished lung sounds in bilateral bases. There was possibly some slight crackles noted as well, although the patient did sound as though she has some upper respiratory secretions, and this was making her have quite a bit of respiratory noise. It did make auscultation difficult. ABDOMEN: Soft. Does not appear to be distended. The patient does have a protuberant abdomen noted. She has no facial grimacing, guarding or localization of pain upon palpation. Bowel sounds are present, and all 4 quadrants were normoactive. EXTREMITIES: The patient does have bilateral mgvmv-eeo-luhy amputations, though stump wounds are healed. There does not appear to be any pressure wounds noted at this time. Capillary refill was less than 3. Radial pulses were 3+ bilaterally. The patient does have right- sided hemiparesis, though was able to squeeze my hand with her left hand upon command. INTEGUMENTARY: The patient's skin is normal for her race, is dry and intact. NEUROLOGICAL: Patient was very drowsy upon my examination, though after sitting her up in the bed and performing a sternal rub, I was able to get her awake enough to answer two questions; what was her name and what month was it; which she answered both correctly. Other than this, she did drift immediately back off to sleep. She was able to move her left side. The patient does have noted right-sided hemiparesis from a previous stroke, though at this time the patient's neurological exam is limited due to her current condition and mentation. ASSESSMENT AND PLAN: 1. Pneumonia. We suspect at this time the patient does have aspiration pneumonia. She was reported by her daughter and senior living staff to recently been getting choked while she is eating. We have obtained blood cultures and sputum culture. We have placed her with antibiotic coverage of vancomycin and Zosyn. We will perform aggressive pulmonary toilet with incentive spirometry, frequent turn, cough, deep breathing, and DuoNeb treatments. We have placed her to be on aspiration precautions. She will be on nothing by mouth until she can have a swallowing evaluation performed. We have provided some supplemental oxygen, and due to some hypercapnia, we will place her on BiPAP as well. We will continue to monitor her condition closely in the PVC unit. 2. Acute hypercapnic and hypoxic respiratory failure. This is likely secondary to the patient's recent diagnosis of pneumonia, as well as she does have a noted history of chronic obstructive pulmonary disease. We will continue with treatment as mentioned above. The patient's oxygen saturation has improved with supplemental oxygen, is maintaining 97% at this time. We will place her on BiPAP for her hypercapnia. We will place her on neurologic checks every 4 hours. We will repeat arterial blood gas later on this morning and monitor her response to this. 3. Encephalopathy. This could be multifactorial. The patient does have a history of dementia. She has had fever, hypoxia, hypercapnia, and does have a urinary tract infection. This could be medication related as well. We will continue to follow closely. She will be placed on continuous cardiac telemetry with frequent vital signs and neurological checks. 4. History of a cerebrovascular accident with right-sided hemiparesis. 5. Diabetes mellitus type 2. We will continue her regularly prescribed insulin. 6. Hypotension. The patient does have some mild hypotension noted. At this time, she is maintaining adequate mean arterial pressures that are in the high 60s. We will continue to monitor this closely. We will hold any of her antihypertensives at this time. 7. Urinary tract infection. The patient does have a history of frequent urinary tract infections. She did have culture and sensitivity report in her paperwork from the senior living from just the beginning of February 2019, which did show she was susceptible to Zosyn. We have placed an order for urine culture. We are awaiting those results. The patient has been placed on PVC unit for close monitoring. We will do vital signs per their protocol. We will do neurological checks. Further orders and recommendations pending hospital course, diagnostic studies, and physician evaluation. Dictated by AUGIE Gee for Ken Razo MD cc: Ken Razo MD I agree with most components of history, physical, assessment and plan. A separate addendum has been dictated. MTDD
[2019-03-20] MEDS: DUONEB (A & A) INH PRN (22:08)
[2019-03-21] MEDS: ZOSYN 3.375 GM in NS 50 ML IV SCH ×3 (06:31→17:18)
[2019-03-21] MEDS: HUMALOG SUBQ SCH ×4 (06:37→21:56)
[2019-03-21 07:18] LABS: BASO# 0.01 X1000 (0.0-0.2); BASO% 0.1 % (0.0-0.8); EOS# 0.31 X1000 (0.0-0.7); EOS% 2.4 % (0.0-10.0); HEMATOCRIT 26.8 % (37.0-47.0); HEMOGLOBIN 8.1 g/dL (12.0-16.0); IMM GRAN# 0.02 X1000 (0.0-0.04); IMM GRAN% 0.2 % (0.0-0.5); LYMPH# 2.12 X1000 (1.2-3.4); LYMPH% 16.6 % (20.5-51.1); MCHC 30.2 g/dL (33-37); MCV 96.1 FL (81-99); MONO# 1.27 X1000 (0.11-0.59); MPV 9.6 FL (7.4-10.4); NEUT# 9.03 X1000 (1.4-6.5); NEUT% 70.7 % (42.2-75.2); PLT 166 X1000 (130-400); RBC 2.79 XMIL (4.2-5.4); RDW 14.8 % (11.5-14.5); WBC 12.76 X1000 (4.8-10.8)
[2019-03-21 07:35] LABS: AGAP 13; BUN 19 mg/dL (8-22); CALCIUM 8.6 mg/dL (8.8-10.2); CHLORIDE 100 mmol/L (98-107); COSMO 285; CREATININE 0.9 mg/dL (0.5-0.9); ESTIMATED GFR > 60; GLUCOSE 152 mg/dL (70-104); SODIUM 140 mmol/L (136-145); TCO2 27 mmol/L (25-35)
[2019-03-21] MEDS: DUONEB (A & A) INH PRN ×2 (09:35→21:25)
[2019-03-21] MEDS: ICAR-C PO SCH (09:45)
[2019-03-21] MEDS: PROTONIX PO SCH ×2 (09:45→21:55)
[2019-03-21] MEDS: DEPAKOTE SPRINKLE PO SCH ×2 (09:45→21:54)
[2019-03-21] MEDS: FLOMAX PO SCH (09:45)
[2019-03-21] MEDS: ASPIRIN PO SCH (09:45)
[2019-03-21] MEDS: NEURONTIN PO SCH ×2 (09:45→21:54)
[2019-03-21] MEDS: LIPITOR PO SCH (09:45)
[2019-03-21] MEDS: VANCOMYCIN 1,250 MG in NS 250 ML IV SCH (09:51)
[2019-03-21] MEDS: MIRALAX PO SCH (09:54)
--- NOTE | 2019-03-21 14:08 | PROGRESS NOTE ---
DATE: 03/21/2019 Mrs. Dyer reports that she feels better. Had a good night last night, breathing comfortably. OBJECTIVE: Temperature 99.2 degrees, pulse is 90, respirations 18, blood pressure 122/52. Pupils are equal and round.Lungs: Clear in all lung magdaleno. Cardiovascular: Regular rhythm and rate without murmur or S3. Abdomen: Soft. Skin: Warm and dry. Urine output was 1300 mL. Blood sugar 221, 138, 199. ASSESSMENT AND PLAN: 1. Sepsis, suspected acute cystitis associated with Moralez catheter. Right lower lobe pneumonia. Suspect sepsis more from pneumonia, possible pyelonephritis. 2. Right lower lobe healthcare associated aspiration pneumonia. 3. Longstanding indwelling Moralez catheter. 4. History of cerebrovascular accident status post right-sided hemiparesis. 5. Essential hypertension. 6. Diabetes mellitus type 2. 7. Chronic anemia. 8. Peripheral artery disease status post bilateral sdubv-iyu-octv amputation. Seems to be making good progress. Continue current orders. cc: Andrews Carpio MD
[2019-03-21] MEDS: TYLENOL PO PRN (18:29)
[2019-03-22] MEDS: ZOSYN 3.375 GM in NS 50 ML IV SCH ×5 (00:44→17:53)
[2019-03-22] MEDS: HUMALOG SUBQ SCH ×4 (06:09→20:54)
[2019-03-22] MEDS: VANCOMYCIN 1,250 MG in NS 250 ML IV SCH (09:02)
[2019-03-22] MEDS: MIRALAX PO SCH (09:03)
[2019-03-22] MEDS: FLOMAX PO SCH (09:03)
[2019-03-22] MEDS: ASPIRIN PO SCH (09:03)
[2019-03-22] MEDS: LIPITOR PO SCH (09:03)
[2019-03-22] MEDS: ICAR-C PO SCH (09:03)
[2019-03-22] MEDS: DEPAKOTE SPRINKLE PO SCH ×2 (09:03→20:49)
[2019-03-22] MEDS: NEURONTIN PO SCH ×2 (09:03→20:49)
[2019-03-22] MEDS: PROTONIX PO SCH ×2 (09:03→20:49)
[2019-03-22] MEDS: TYLENOL PO PRN ×2 (11:59→19:01)
--- NOTE | 2019-03-22 17:01 | PROGRESS NOTE ---
DATE: 03/22/2019 SUBJECTIVE: Ms. Dyer was awake. She had no complaints. She appears comfortable. OBJECTIVE: Temperature 98.8 degrees, pulse 72, respirations 18, blood pressure 133/57. Pupils are equal and round. Lungs are clear in all lung magdaleno. Cardiovascular: Regular rhythm and rate without murmur or S3. Urine output 2000 mL. ASSESSMENT AND PLAN: 1. Sepsis. Presented with sepsis, suspected acute cystitis associated with Moralez catheter, right lower lobe pneumonia as well, and suspect the sepsis is predominantly from the pneumonia but possibly had pyelonephritis as well. 2. Right lower lobe healthcare-associated aspiration pneumonia. 3. Longstanding indwelling Moralez catheter. 4. History of cerebrovascular accident, status post right-sided hemiparesis. 5. Essential hypertension. 6. Diabetes mellitus, type 2. Sugars under good control. 7. Chronic anemia. 8. Peripheral artery disease status post bilateral filkr-opf-qhco amputation. ORDERS: Looking over her orders, I do not see any change. LABORATORY DATA: Hematocrit 26 hemoglobin 8.1 which is fairly stable. Blood sugars 161, 136, 198. cc: Andrews Carpio MD
[2019-03-22] MEDS: DUONEB (A & A) INH PRN (23:24)
[2019-03-23] MEDS: ZOSYN 3.375 GM in NS 50 ML IV SCH ×5 (00:32→23:25)
[2019-03-23] MEDS: HUMALOG SUBQ SCH ×5 (06:30→20:50)
[2019-03-23] MEDS: MIRALAX PO SCH (08:52)
[2019-03-23] MEDS: DEPAKOTE SPRINKLE PO SCH ×2 (08:53→20:50)
[2019-03-23] MEDS: PROTONIX PO SCH ×2 (08:53→20:50)
[2019-03-23] MEDS: FLOMAX PO SCH (08:53)
[2019-03-23] MEDS: ASPIRIN PO SCH (08:53)
[2019-03-23] MEDS: NEURONTIN PO SCH ×2 (08:53→20:50)
[2019-03-23] MEDS: LIPITOR PO SCH (08:53)
[2019-03-23] MEDS: ICAR-C PO SCH (08:53)
[2019-03-23] MEDS: VANCOMYCIN 1,600 MG in NS 250 ML IV SCH (09:10)
[2019-03-23] MEDS: TYLENOL PO PRN (16:08)
--- NOTE | 2019-03-23 18:20 | PROGRESS NOTE ---
DATE: 03/23/2019 SUBJECTIVE: Ms. Dyer is breathing better. She is more awake and alert. She wants to try to go back to [facility] tomorrow. OBJECTIVE: Temp 99.1 degrees, pulse 70, respirations 17, blood pressure 132/60. Pupils are equal round. Lungs: Are clear in all lung magdaleno. Cardiovascular: Regular rate without murmur or S3. LABORATORIES: Blood sugar 154, 131, 160. ASSESSMENT AND PLAN: 1. Sepsis, presented with acute cystitis associated with Moralez catheter as well as right lower lobe pneumonia and she has been on antibiotics. She has made steady improvement. We will check another x-ray in the morning. 2. Right lower lobe healthcare-associated aspiration pneumonia which appears to be well treated. 3. Longstanding indwelling Moralez catheter. 4. History of cerebrovascular accident, status post right-sided hemiparesis. 5. Essential hypertension. 6. Diabetes mellitus type 2. 7. Chronic anemia. 8. Peripheral artery disease, status post bilateral bfkdf-hys-jnzq amputation. Looking at her orders, I do not see any change. We will check another x-ray in the morning and check some more lab in the morning as well. Blood sugars have been well controlled. cc: Andrews Carpio MD
[2019-03-24] MEDS: TYLENOL PO PRN (02:10)
[2019-03-24] MEDS: ZOSYN 3.375 GM in NS 50 ML IV SCH ×2 (05:17→12:15)
[2019-03-24] MEDS: HUMALOG SUBQ SCH ×4 (06:23→22:40)
[2019-03-24 06:27] LABS: BASO# 0.01 X1000 (0.0-0.2); BASO% 0.2 % (0.0-0.8); EOS# 0.41 X1000 (0.0-0.7); EOS% 7.8 % (0.0-10.0); HEMATOCRIT 27.1 % (37.0-47.0); HEMOGLOBIN 8.5 g/dL (12.0-16.0); LYMPH# 2.01 X1000 (1.2-3.4); LYMPH% 38.4 % (20.5-51.1); MCH 29.1 PG (27-31); MCHC 31.4 g/dL (33-37); MCV 92.8 FL (81-99); MONO# 0.64 X1000 (0.11-0.59); MONO% 12.2 % (1.7-9.3); NEUT# 2.17 X1000 (1.4-6.5); NEUT% 41.4 % (42.2-75.2); PLT 210 X1000 (130-400); RBC 2.92 XMIL (4.2-5.4); RDW 13.9 % (11.5-14.5); WBC 5.24 X1000 (4.8-10.8)
[2019-03-24 06:31] LABS: AGAP 13; BUN 11 mg/dL (8-22); CALCIUM 8.4 mg/dL (8.8-10.2); CHLORIDE 104 mmol/L (98-107); COSMO 288; ESTIMATED GFR > 60; GLUCOSE 172 mg/dL (70-104); MAGNESIUM 1.9 mg/dL (1.5-2.7); POTASSIUM 3.3 mmol/L (3.5-5.1); SODIUM 143 mmol/L (136-145); TCO2 26 mmol/L (25-35)
--- NOTE | 2019-03-24 07:01 | Diag Imaging Result Doc PS360 ---
CHEST-PORTABLE - 03/24/2019 INDICATION: pneumonia COMPARISON: 03/20/2019 FINDINGS: The lungs are normally expanded and clear. Heart size and mediastinal contours are normal. No pneumothorax or pleural effusion. IMPRESSION: Negative exam. Electronically signed by Sonido Souza 03/24/2019 6:58 AM
[2019-03-24] MEDS: FLOMAX PO SCH (08:30)
[2019-03-24] MEDS: DEPAKOTE SPRINKLE PO SCH ×2 (08:30→20:38)
[2019-03-24] MEDS: ICAR-C PO SCH (08:30)
[2019-03-24] MEDS: ASPIRIN PO SCH (08:30)
[2019-03-24] MEDS: PROTONIX PO SCH ×2 (08:31→20:38)
[2019-03-24] MEDS: MIRALAX PO SCH (08:31)
[2019-03-24] MEDS: VANCOMYCIN 1,600 MG in NS 250 ML IV SCH (08:31)
[2019-03-24] MEDS: NEURONTIN PO SCH ×2 (08:31→20:38)
[2019-03-24] MEDS: LIPITOR PO SCH (08:31)
--- NOTE | 2019-03-24 13:11 | DISCHARGE SUMMARY ---
ADMISSION DATE: 03/20/2019 DISCHARGE DATE: 03/24/2019 PRIMARY CARE PHYSICIAN: She is a patient of Dr. Benjamin Kim. HISTORY OF PRESENT ILLNESS: A 69-year-old with past medical history of cerebrovascular accident status post right-sided hemiparesis, essential hypertension, insulin-dependent diabetes mellitus type 2, iron deficiency anemia, chronic gastroesophageal reflux disease, peripheral artery disease status post bilateral above the knee amputation, [facility] complaining of cough, hypoxia, oxygen saturation 85% on room air. Apparently, patient had an episode of vomiting the day before and since then has had frequent coughing. In the emergency room, found to have a fever of 101.5 degrees, tachycardia, pulse 107. Chest x-ray and urinalysis were performed concerning for right lower lobe pneumonia and urinary tract infection, so admitted to the hospital. ADMISSION DIAGNOSES: 1. Questionable sepsis due to acute cystitis associated with Moralez catheter and also a right lower lobe pneumonia. 2. Right lower lobe pneumonia, possibly associated with aspiration and from the pen[facility]entiary. 3. Longstanding indwelling Moralez catheter. 4. History of cerebrovascular accident status post residual right-sided hemiparesis. 5. Essential hypertension. 6. Insulin-dependent diabetes mellitus type 2. 7. Chronic anemia. 8. Peripheral artery disease, status post bilateral above the knee amputation. HOSPITAL COURSE: The patient was started on vancomycin and Zosyn and she showed some steady improvement and her cultures grew out Escherichia coli from her urine culture and it was extended spectrum beta lactamase-producing. She had coagulase-negative Staphylococcus which felt was probably contaminant. She was feeling better. She was on vancomycin and Zosyn, felt clinically had improved. Note, she is going to need to be on ertapenem for a little bit of time and set up probably extended antibiotic for that. I will ask Dr. Jones to evaluate, but I do not think she can go back to the [facility] at this time, so we will postpone that. cc: Andrews Carpio MD
--- NOTE | 2019-03-24 13:14 | PROGRESS NOTE ---
DATE: 03/24/2019 SUBJECTIVE: Note that she looks good, but she has a chronic indwelling Moralez catheter. Her urine culture grew E coli which was extended spectrum beta lactamase producing, and so I think we need to determine how long we need to give her antibiotic. I am going to ask Dr. Jones to help. I am going to put her on ertapenem, which will be once a day. Her pneumonia appears to have cleared. We will check a chest x-ray and see where we are. I do not think she is ready to be discharged to the alf. cc: Andrews Carpio MD
--- NOTE | 2019-03-24 14:16 | Diag Imaging Result Doc PS360 ---
CHEST-PORTABLE - 03/24/2019 2:03 PM INDICATION: pneumonia COMPARISON: 5:32 AM FINDINGS: The lungs are normally expanded and clear. Heart size and mediastinal contours are normal. No pneumothorax or pleural effusion. IMPRESSION: Negative exam. Electronically signed by Snoido Souza 03/24/2019 2:14 PM
[2019-03-24] MEDS: INVANZ 1 GM/NS 1 GM/50 ML IVPB IV SCH (14:49)
--- NOTE | 2019-03-24 15:25 | INFECTIOUS DISEASE PROGRESS NO ---
DATE: 03/24/2019 CONCLUSION: The patient is admitted to the hospital with what I think is an aspiration pneumonia. She does have an extended spectrum beta lactamase producing E. coli urinary tract infection, but I think this is asymptomatic. The patient has 1 of 2 blood cultures growing a coagulase-negative Staph. This is a contaminant. RECOMMENDATIONS: I do not think that the patient's urinary tract infection requires treatment because it is asymptomatic. The patient has received antibiotics and it appears that her right upper lobe pneumonia has cleared. The patient's studies thus far show a CBC with a white count of 5240, hemoglobin 8.5, and platelet count 210,000. Creatinine is 1. GFR is greater than 60. Liver function studies are normal. Urinalysis showed white cells, bacteria and yeast. Pneumococcal and Legionella antigens are negative. 1/2 blood cultures is growing a coagulase- negative Staph. This is a contaminant. The urine grew an extended spectrum beta lactamase producing E. coli. The nursing staff in the [facility] where the patient lives noticed that the patient was choking when she ate and may well have aspirated. The patient has one blood culture that grew a coagulase-negative Staph It is a contaminant and does not require treatment. PATIENT'S PAST MEDICAL HISTORY: 1. Positive for left-sided stroke with residual right hemiparesis. 2. Hypertension. 3. Diabetes. 4. Hyperlipidemia. 5. Dementia. 6. Gastroesophageal reflux disease. 7. Iron deficiency anemia, CRESENCIO. 8. Peripheral vascular disease, which culminated in patient having bilateral jdfyf-qnc-jzaw amputations. 9. Recurrent urinary tract infections. 10. COPD. 11. History of gastrointestinal hemorrhage. PAST SURGICAL HISTORY: 1. Positive for bilateral tpivx-geh-mvyb amputations. 2. Previous placement of a PEG tube, which subsequently was removed. 3. Hysterectomy. SOCIAL HISTORY: The patient lives in a [facility]. She has a history of prior nicotine and cocaine dependence in the past. ALLERGIES: The patient is allergic to JUAN inhibitors and sulfa. HOME MEDICATIONS: Include DuoNeb, aspirin, atorvastatin, Rocephin, clindamycin, cranberry juice, divalproex, Aricept, Lasix, gabapentin, insulin, Claritin, magnesium oxide, metformin, Remeron, Protonix, Flomax, trazodone, and ziprasidone. TESTS: Patient's CBC shows a white cell white cell count of 5240, hemoglobin 8.5, platelet count 210,000. Creatinine is 1. GFR is greater than 60. The patient's chest x-ray showed a possible right upper lobe infiltrate. FAMILY HISTORY: Unable to be obtained. SOCIAL HISTORY: The patient lives at [facility]. PHYSICAL EXAMINATION: Vital Signs: Temperature is 98.4 degrees, pulse 72, respirations 18, blood pressure 167/96. Patient weighs 198 pounds. General: This is a morbidly obese elderly female. She is in no acute distress. Head/eyes/ears/nose/throat: She can hear my spoken words. She talks in a very deep voice. I did not see any white patches in her mouth. Neck: No pain with movement of her neck. Lungs: Clear to auscultation. Cardiovascular: Heart rate is regular. Abdomen: Soft and nontender. Pelvic examination, the patient has a Moralez catheter in place. Neurologic: The patient is awake, she has a right hemiparesis. There is no tremor. CONCLUSION: Patient has an asymptomatic E. coli urinary tract infection. RECOMMENDATIONS: Because the patient's urinary tract infection is asymptomatic, it does not require antibiotic treatment. Likewise, the patient had 1/2 blood cultures growing a coag- negative Staph. This is a contaminant and also does not require treatment. cc: Ty Jones MD MTDD
[2019-03-25] MEDS: HUMALOG SUBQ SCH ×2 (06:30→11:51)
[2019-03-25] MEDS: NEURONTIN PO SCH (09:00)
[2019-03-25] MEDS: LIPITOR PO SCH (09:00)
[2019-03-25] MEDS: PROTONIX PO SCH (09:00)
[2019-03-25] MEDS: DEPAKOTE SPRINKLE PO SCH (09:00)
[2019-03-25] MEDS: ASPIRIN PO SCH (09:01)
[2019-03-25] MEDS: MIRALAX PO SCH (09:01)
[2019-03-25] MEDS: FLOMAX PO SCH (09:01)
[2019-03-25] MEDS: ICAR-C PO SCH (09:01)
[2019-03-25] MEDS: TYLENOL PO PRN (10:31)
[2019-03-25 11:04] VITALS: BP 133/62
--- NOTE | 2019-03-25 14:00 | DISCHARGE SUMMARY ---
ADMISSION DATE: 03/20/2019 DISCHARGE DATE: 03/25/2019 She is a patient of Benjamin Kim MD. A 69-year-old with past medical history of cerebrovascular accident status post right-sided hemiparesis, essential hypertension, insulin- dependent diabetes mellitus type 2, iron deficiency anemia, chronic gastroesophageal reflux disease, peripheral artery disease status post bilateral above the knee amputation, sent for [facility] concerning cough, hypoxemia, oxygen saturations 85% on room air. Patient had episode of vomiting the day before. In the emergency room, found to have a temp 101.5. She was admitted, appeared that she had pneumonia. She had no symptoms of urinary tract. Cultures did grow E. coli and were extended spectrum beta lactamase producing, but there were no symptoms of urinary tract, and the pneumonia was aggressively treated. I feel this is probably aspiration pneumonia, so patient can be discharged back to the retirement. Discharge medications set up and will not need any further antibiotic. Her most recent chest x-ray was negative, no infiltrates. cc: Andrews Carpio MD
[2019-03-25] MEDS: INVANZ 1 GM/NS 1 GM/50 ML IVPB IV SCH (14:02)
== END 2019-03-25 15:30 | DRG 871 ==
LOC: SUPCPDRO → ED 01:25 → 2N 06:23 → SUATTDRO 06:23
PROVIDERS: ATTEND Emergency Medicine

== ENCOUNTER 2019-04-30 01:10 | Inpatient (IN) ==
[2019-05-11 13:51] VITALS: BP 137/70
== END 2019-05-11 16:32 | DRG 853 ==
LOC: ED 01:10 → EDIPHOLD 06:12 → SUATTDRO 06:12 → 2N 10:54 → 3N 05-06 22:47
PROVIDERS: ATTEND Internal Medicine